=== PATIENT | female | born 1950 | race Hispanic/Latino ===

== ENCOUNTER 2017-11-24 12:40 | Observation (INO) | payer OTHER, MEDICARE ==
[~2017-11-24] VITALS: Ht 154.9 cm; Wt 72.4 kg
[~2017-11-24 12:40] MED LIST: ACET1TAB25 PO; ASPI-555 PO; ATOR20TA65 PO; EZET10TA26 PO; IBUP-2070 PO; INS7030 SQ; INSU100I21 SQ; LANS30CA55 PO; LINA290C PO; LISI40TA4 PO; LUBI24CA2 PO; METO5 PO; OMEP40CA37 PO; ONDA4TAB9 PO; SIMV40TA59 PO; SITA1TAB6 PO
[2017-11-24] MEDS ORDERED: ONDANSETRON HCL 4 MG/2 ML VIAL ONE (13:22)
[2017-11-24] MEDS ORDERED: SODIUM CHLORIDE 0.9% 1000ML 1,000 ML IV ONE (13:22)
[2017-11-24 13:25] LABS: BASOPHILS % (AUTO) 0.4 % (0.0-5.0); EOSINOPHILS % (AUTO) 0.6 % (0.0-8.0); HEMATOCRIT 41.4 % (36-48); LYMPHOCYTES % (AUTO) 7.2 % (21.0-51.0); MEAN CORPUSCULAR HEMOGLOBIN 27.5 pg (27.0-33.0); MEAN CORPUSCULAR HGB CONC 33.3 g/dL (32.0-36.0); MEAN CORPUSCULAR VOLUME 82.8 fL (79-99); MONOCYTES % (AUTO) 3.6 % (3.0-13.0); NEUTROPHILS % (AUTO) 88.2 % (40.0-77.0); PLATELET COUNT (AUTO) 184 K/uL (130-400); RED CELL DISTRIBUTION WIDTH 13.9 % (11.0-15.5); WHITE BLOOD COUNT (AUTO) 13.5 K/uL (4.8-10.8)
[2017-11-24 13:35] LABS: CREATININE 1.1 mg/dL (0.5-1.5); POTASSIUM 3.7 mmol/L (3.5-5.1)
[2017-11-24 13:39] LABS: BILIRUBIN,URINE Negative (NEGATIVE); COLOR,URINE Yellow (YELLOW); GLUCOSE, URINE (UA) 250 mg/dL (NEGATIVE); KETONES,URINE Negative (NEGATIVE); LEUKOCYTE ESTERASE ,URINE Small (NEGATIVE); NITRATE,URINE Positive (NEGATIVE); OCCULT BLOOD,URINE Small (NEGATIVE); PH,URINE 7.5 (5.0-8.0); PROTEIN,URINE >=1000 (NEGATIVE)
[2017-11-24 13:46] LABS: APPEARANCE,URINE SLIGHTLY CLOUDY (CLEAR)
[2017-11-24 13:48] LABS: ALBUMIN 3.4 g/dL (3.5-5.0); BILIRUBIN,DIRECT 0.3 mg/dL (0.0-0.3); BILIRUBIN,TOTAL 1.3 mg/dL (0.2-1.0); TOTAL PROTEIN, SERUM 7.7 g/dL (6.0-8.3)
[2017-11-24 14:20] LABS: BACTERIA,URINE Moderate /HPF (None Seen)
[2017-11-24] MEDS ORDERED: SODIUM CHLORIDE 0.9% 100 ML IV ONE (15:43)
[2017-11-24] MEDS ORDERED: CEFTRIAXONE SODIUM 2 GM VIAL ONE (15:43)
[2017-11-24] MEDS ORDERED: MAG HYDROX/AL HYDROX/SIMETH ES 30 ML SUSP UDCUP PO PRN (16:45)
[2017-11-24] MEDS ORDERED: CEFTRIAXONE 1GM/D5W 50ML 50 ML IV SCH (16:45)
[2017-11-24] MEDS ORDERED: GUAIFENESIN-DM 200/20 MG 10 ML PO PRN (16:45)
[2017-11-24] MEDS ORDERED: ACETAMINOPHEN 325 MG TAB PO PRN (16:45)
[2017-11-24] MEDS ORDERED: LACTULOSE 20 GM/30 ML UDCUP PO PRN (16:45)
[2017-11-24] MEDS ORDERED: ONDANSETRON HCL 4 MG/2 ML VIAL IV PRN (16:45)
[2017-11-24] MEDS ORDERED: MORPHINE SULFATE 2 MG/ML 1ML SYG IV PRN (16:45)
[2017-11-24 17:37] VITALS: BP 119/53
[2017-11-24 19:46] VITALS: BP 149/59
[2017-11-24] MEDS: SODIUM CHLORIDE 0.9% 1000ML 1,000 ML IV SCH (20:07)
[2017-11-24] MEDS ORDERED: POTASSIUM CHLORIDE 20 MEQ ERTAB PO PRN (22:30)
[2017-11-24] MEDS ORDERED: CEFEPIME 1GM+NS 50ML 50 ML IV SCH (22:30)
[2017-11-24] MEDS ORDERED: POTASSIUM CHLORIDE 20MEQ/100ML 100 ML IV PRN (22:30)
[2017-11-24] MEDS ORDERED: POTASSIUM CHLORIDE 10% ELIXIR 20 MEQ/15 ML UDCUP PO PRN (22:30)
[2017-11-24] MEDS ORDERED: LIDOCAINE HCL-MPF 1% 2ML VIAL IVP PRN (22:30)
[2017-11-24] MEDS ORDERED: CEFEPIME HCL 1 GM VIAL IVP SCH (23:00)
[2017-11-24] MEDS: CEFEPIME HCL 1 GM VIAL IVP SCH (23:19)
[2017-11-24 23:29] VITALS: BP 141/59
[2017-11-25 03:29] VITALS: BP 137/64
[2017-11-25 04:20] LABS: MEAN CORPUSCULAR HEMOGLOBIN 28.3 pg (27.0-33.0); MEAN CORPUSCULAR HGB CONC 33.9 g/dL (32.0-36.0); MEAN CORPUSCULAR VOLUME 83.3 fL (79-99); PLATELET COUNT (AUTO) 160 K/uL (130-400); RED BLOOD CELL COUNT(AUTO) 4.43 MIL/uL (4.00-5.50); RED CELL DISTRIBUTION WIDTH 13.9 % (11.0-15.5); WHITE BLOOD COUNT (AUTO) 9.5 K/uL (4.8-10.8)
[2017-11-25 04:42] LABS: POTASSIUM 3.6 mmol/L (3.5-5.1)
[2017-11-25] MEDS: METOCLOPRAMIDE 5 MG TABLET PO SCH ×4 (06:16→21:01)
[2017-11-25] MEDS: INSULIN HUMULIN R 100 UNIT/ML 3ML SQ SCH ×4 (06:16→20:53)
[2017-11-25 08:00] VITALS: BP 125/68
[2017-11-25] MEDS: ACETAMINOPHEN 325 MG TAB PO PRN ×2 (09:28→23:53)
[2017-11-25] MEDS: FAMOTIDINE/PF 20 MG/2 ML VIAL IV SCH (09:28)
[2017-11-25] MEDS: SODIUM CHLORIDE 0.9% 1000ML 1,000 ML IV SCH (09:33)
[2017-11-25] MEDS ORDERED: MORPHINE SULFATE 4 MG/1ML SYG IVP PRN (10:00)
[2017-11-25] MEDS ORDERED: KETOROLAC TROMETHAMINE 15MG/ML IV PRN (10:00)
[2017-11-25] MEDS ORDERED: MORPHINE SULFATE 2 MG/ML 1ML SYG IVP PRN (10:00)
[2017-11-25] MEDS ORDERED: ACETAMINOPHEN-CODEINE 300/30MG TAB PO PRN ×2 (10:00)
[2017-11-25 11:57] VITALS: BP 134/59
[2017-11-25] MEDS: CEFEPIME HCL 1 GM VIAL IVP SCH ×2 (12:50→23:52)
[2017-11-25 16:00] VITALS: BP 129/62
[2017-11-25] MEDS ORDERED: CEFTRIAXONE SODIUM 1 GM IVP SCH (16:00)
[2017-11-25] MEDS ORDERED: INSU (17:03)
[2017-11-25] MEDS ORDERED: LISI40TA4 PO (17:03)
[2017-11-25] MEDS ORDERED: LUBI24CA2 PO (17:03)
[2017-11-25] MEDS ORDERED: ATOR10 PO (17:03)
[2017-11-25] MEDS ORDERED: LUBIPROSTONE 24 MCG CAP PO PRN (17:15)
[2017-11-25 19:15] VITALS: BP 143/75
[2017-11-25] MEDS ORDERED: LISINOPRIL 40 MG TABLET PO SCH (21:00)
[2017-11-25] MEDS ORDERED: ATORVASTATIN CALCIUM 20 MG TABLET PO SCH (21:00)
[2017-11-25 23:05] VITALS: BP 116/67
[2017-11-26 03:10] VITALS: BP 134/55
[2017-11-26 05:17] LABS: CREATININE 0.8 mg/dL (0.5-1.5); POTASSIUM 3.2 mmol/L (3.5-5.1)
[2017-11-26] MEDS: INSULIN HUMULIN R 100 UNIT/ML 3ML SQ SCH ×2 (05:40→12:35)
[2017-11-26] MEDS: METOCLOPRAMIDE 5 MG TABLET PO SCH ×2 (05:41→11:31)
[2017-11-26 07:59] VITALS: BP 143/62
[2017-11-26] MEDS: FAMOTIDINE/PF 20 MG/2 ML VIAL IV SCH (10:02)
[2017-11-26] MEDS: CEFEPIME HCL 1 GM VIAL IVP SCH (11:31)
[2017-11-26 11:32] VITALS: BP 140/64
== END 2017-11-26 15:05 | disposition home or self-care (01) ==
LOC: EDH 12:40 → EDHIP 16:32 → 3DH 17:33
PROVIDERS: ADMIT Family Medicine; ATTEND Family Medicine
DX: N39.0 Urinary tract infection, site not specified (principal); E11.43 Type 2 diabetes mellitus with diabetic autonomic (poly)neuropathy; K31.84 Gastroparesis; I10 Essential (primary) hypertension; E78.5 Hyperlipidemia, unspecified; Z16.24 Resistance to multiple antibiotics; Z85.3 Personal history of malignant neoplasm of breast; Z90.10 Acquired absence of unspecified breast and nipple
CPT/HCPCS: 36415 ×3; 71045; 80048 ×3; 80076; 81001; 82948 ×8; 83605 ×2; 84484; 85025; 85027; 86677; 87040 ×2; 87088; 87186; 87804 ×2; 93005; 96361 ×2; 96372 ×2; 96374; 96375; 96376 ×2; 99285; A4218 ×4; G0378 ×47; J0692 ×5; J0696 ×2; J1815 ×4; J2405; J3490 ×2; J7030 ×2

== ENCOUNTER → 2018-03-03 | Outpatient (CLI) | payer OTHER, MEDICARE ==
[~2018-03-03] MED LIST changes: +ATOR10 PO; +INSU
== END | disposition home or self-care (01) ==
LOC: RAH 16:20
PROVIDERS: ATTEND Internal Medicine
DX: M25.531 Pain in right wrist (principal); M79.641 Pain in right hand
CPT/HCPCS: 73090; 73110

== ENCOUNTER 2018-03-05 13:44 | Emergency (ER) | payer OTHER, MEDICARE ==
[2018-03-05 14:09] LABS: BASOPHILS % (AUTO) 0.3 % (0.0-5.0); EOSINOPHILS % (AUTO) 0.6 % (0.0-8.0); HEMATOCRIT 40.4 % (36-48); MEAN CORPUSCULAR HEMOGLOBIN 28.5 pg (27.0-33.0); MEAN CORPUSCULAR HGB CONC 34.4 g/dL (32.0-36.0); MEAN CORPUSCULAR VOLUME 82.8 fL (79-99); MONOCYTES % (AUTO) 5.2 % (3.0-13.0); NEUTROPHILS % (AUTO) 67.9 % (40.0-77.0); PLATELET COUNT (AUTO) 203 K/uL (130-400); RED BLOOD CELL COUNT(AUTO) 4.88 MIL/uL (4.00-5.50); RED CELL DISTRIBUTION WIDTH 14.4 % (11.0-15.5); WHITE BLOOD COUNT (AUTO) 12.3 K/uL (4.8-10.8)
[2018-03-05] MEDS ORDERED: KETOROLAC TROMETHAMINE 30MG/ML ONE (14:09)
[2018-03-05] MEDS ORDERED: SODIUM CHLORIDE 0.9% 500ML 500 ML IV ONE (14:09)
[2018-03-05 14:21] LABS: POTASSIUM 3.2 mmol/L (3.5-5.1)
[2018-03-05 14:23] LABS: INR 0.96 (0.85-1.15); PARTIAL THROMBOPLASTIN TIME 22.9 SEC (26.3-35.5); PROTHROMBIN TIME 10.1 SEC (9.6-11.6)
[2018-03-05 14:28] LABS: ALBUMIN 3.7 g/dL (3.5-5.0); BILIRUBIN,TOTAL 0.6 mg/dL (0.2-1.0); TOTAL PROTEIN, SERUM 7.9 g/dL (6.0-8.3)
== END 2018-03-05 16:19 | disposition home or self-care (01) ==
LOC: EDH 13:44
DX: S09.8XXA Other specified injuries of head, initial encounter (principal); R55 Syncope and collapse; E11.9 Type 2 diabetes mellitus without complications; E78.00 Pure hypercholesterolemia, unspecified; I10 Essential (primary) hypertension; M81.0 Age-related osteoporosis without current pathological fracture; Z85.3 Personal history of malignant neoplasm of breast; W18.39XA Other fall on same level, initial encounter; Y93.89 Activity, other specified; Y92.89 Other specified places as the place of occurrence of the external cause; Y99.8 Other external cause status
CPT/HCPCS: 36415; 70450; 72125; 80053; 83880; 84484; 85025; 85610; 85730; 93005; 96374; 99285; J1885; J7040

== ENCOUNTER → 2018-03-25 | Outpatient (CLI) | payer OTHER, MEDICARE | END | disposition home or self-care (01) | LOC: RAH 09:16 | PROVIDERS: ATTEND Internal Medicine | DX: I07.1 Rheumatic tricuspid insufficiency (principal); R55 Syncope and collapse; Z90.12 Acquired absence of left breast and nipple | CPT/HCPCS: 93306; 93880 ==

== ENCOUNTER → 2018-06-24 | Outpatient (CLI) | payer OTHER, MEDICARE ==
[~2018-06-24] VITALS: Ht 152.4 cm; Wt 74.4 kg
[~2018-06-24] MED LIST changes: +REGADENOSON 0.4 MG/5 ML PF SYG IVP SCH
== END | disposition home or self-care (01) ==
LOC: SHCH 07:49
PROVIDERS: ATTEND Internal Medicine Cardiovascular Disease
DX: I10 Essential (primary) hypertension (principal); R06.00 Dyspnea, unspecified; R07.9 Chest pain, unspecified
CPT/HCPCS: 78452; 93017; 96374; A9500 ×2; J2785

== ENCOUNTER → 2018-11-24 | Outpatient (CLI) | payer OTHER, MEDICARE ==
[~2018-11-24] MED LIST changes: -ACET1TAB25 PO; +AMLO5TAB9 PO; -ASPI-555 PO; -ATOR10 PO; -ATOR20TA65 PO; +ATOR40TA69 PO; +CARB100C4 PO; +ESOM40CA54 PO; -EZET10TA26 PO; +HUM100IN SQ; -IBUP-2070 PO; -INS7030 SQ; -INSU; -INSU100I21 SQ; +LACT10SO9 PO; -LANS30CA55 PO; +LINA145C PO; -LINA290C PO; +LISI10TA7 PO; -LISI40TA4 PO; -LUBI24CA2 PO; -METO5 PO; -OMEP40CA37 PO; -ONDA4TAB9 PO; -REGADENOSON 0.4 MG/5 ML PF SYG IVP SCH; -SIMV40TA59 PO; -SITA1TAB6 PO; +TRAZ150T79 PO
--- NOTE | 2018-11-24 12:45 | NUR ---
MBSS COMPLETED. NO S/S OF ASPIRATION. RECOMMEND REGULAR TEXTURE, THIN LIQUIDS; PILLS WHOLE WITH LIQUIDS. PATIENT INFORMATION: Pt IS A 68 YEAR OLD FEMALE REFERRED FOR A MBSS SECONDARY TO POSSIBLE DYSPHAGIA. Pt PARTICIPATED IN AN MBSS AT THIS FACILITY ON 07/16/2018 WITH RECOMMENDATIONS FOR: MECHANICAL SOFT/CHOPPED, THIN LIQUIDS. Pt REPORTS THAT SHE FEELS PAIN AT LEVEL OF THE ESOPHAGUS WHEN SHE EATS. Pt HAS A PAST MEDICAL HISTORY SIGNIFICANT FOR CORONARY ARTERY DISEASE S/P CABG, DIABETES MELLITUS, HYPERTENSION, DYSLIPIDEMIA, OSTEOPOROSIS, MASTECTOMY IN THE 80s, BREAST CANCER, AND 4 CHOLECYSTECTOMIES. MBSS INTERPRETATION: SWALLOW FUNCTION AND EFFICIENCY WITHIN FUNCTIONAL LIMITS. ORAL MOTOR STRENGTH, COORDINATION, AND ROM WITHIN FUNCTIONAL LIMITS. LARYNGEAL ELEVATION/EXCURSION STRONG WITH TIMELY PHARYNGEAL RESPONSE. NO OVERT SIGNS OR SYMPTOMS OF ASPIRATION PRESENT DURING MBSS. A-P VIEW: BOLUS REFLUX NOTED WITHIN THE ESOPHAGUS. TOTAL BOLUS TRANSIT TIME OF 15 SECONDS WITH RESIDUE IN ESOPHAGEAL SOTO OF UPPER 1/3 OF ESOPHAGUS. RECOMMENDATION: 1. REGULAR TEXTURE, THIN LIQUIDS; PILLS WHOLE WITH LIQUIDS. 2. COMPENSATORY STRATEGIES: *SEATED AT 90 DEGREES *SMALL BITES AND SIPS *REMAIN UPRIGHT 30 MINUTES AFTER MEAL *ALTERNATE BITES AND SIPS *SLOW RATE 3. GI CONSULT FOR REFLUX OF BOLUS AND STASIS IN ESOPHAGUS RESULTS AND RECOMMENDATIONS WERE REVIEWED WITH THE Pt. SHE VERBALIZED AGREEMENT AND COMPLIANCE WITH RECOMMENDATIONS. HANDOUT PROVIDED WITH RESULTS AND RECOMMENDATIONS. G-CODES SWALLOWING: [id number] Addendum: 11/24/18 at 1254 by JOSH FREITAS Amended: Links added.
== END | disposition home or self-care (01) ==
LOC: RAH 10:00
PROVIDERS: ATTEND Internal Medicine Gastroenterology
DX: R13.12 Dysphagia, oropharyngeal phase (principal); R93.3 Abnormal findings on diagnostic imaging of other parts of digestive tract; I10 Essential (primary) hypertension; E11.9 Type 2 diabetes mellitus without complications
CPT/HCPCS: G8996; G8997; G8998; 74230; 92611

== ENCOUNTER 2019-01-16 00:51 | Emergency (ER) | payer OTHER, MEDICARE ==
[2019-01-16] MEDS ORDERED: KETOROLAC TROMETHAMINE 30MG/ML ONE (01:36)
[2019-01-16] MEDS ORDERED: DIAZEPAM 2 MG TAB ONE (01:36)
[2019-01-16] MEDS ORDERED: HYDROCODONE/ACETAMINOPHEN 5/325 MG TAB ONE (01:37)
[2019-01-16] MEDS ORDERED: LIDOCAINE 5% TOPICAL PATCH TP ONE (02:36)
== END 2019-01-16 03:26 | disposition home or self-care (01) ==
LOC: EDH 00:51
DX: M54.5 Low back pain (principal); M62.838 Other muscle spasm; K59.00 Constipation, unspecified; I25.810 Atherosclerosis of coronary artery bypass graft(s) without angina pectoris; E11.9 Type 2 diabetes mellitus without complications; E78.00 Pure hypercholesterolemia, unspecified; I10 Essential (primary) hypertension; M81.0 Age-related osteoporosis without current pathological fracture; Z85.3 Personal history of malignant neoplasm of breast
CPT/HCPCS: 72100; 96372; 99284; J1885

== ENCOUNTER → 2019-04-05 | Outpatient (CLI) | payer OTHER, MEDICARE ==
[~2019-04-05] VITALS: Ht 152.4 cm; Wt 77.1 kg
[~2019-04-05] MED LIST changes: +REGADENOSON 0.4 MG/5 ML PF SYG IVP SCH
== END | disposition home or self-care (01) ==
LOC: SHCH 08:09
PROVIDERS: ATTEND Internal Medicine Cardiovascular Disease
DX: R06.00 Dyspnea, unspecified (principal); R07.89 Other chest pain
CPT/HCPCS: 78452; 93017; 96374; A9500 ×2; J2785

== ENCOUNTER 2019-05-05 07:40 | Day surgery (SDC) | payer OTHER, MEDICARE ==
[2019-05-03 08:46] VITALS: BP 170/80
[2019-05-03 08:50] LABS: BASOPHILS % (AUTO) 0.8 % (0.0-5.0); EOSINOPHILS % (AUTO) 3.2 % (0.0-8.0); LYMPHOCYTES % (AUTO) 15.7 % (21.0-51.0); MEAN CORPUSCULAR HEMOGLOBIN 25.7 pg (27.0-33.0); MEAN CORPUSCULAR HGB CONC 32.2 g/dL (32.0-36.0); MEAN CORPUSCULAR VOLUME 79.9 fL (79-99); MONOCYTES % (AUTO) 9.2 % (3.0-13.0); NEUTROPHILS % (AUTO) 71.1 % (40.0-77.0); PLATELET COUNT (AUTO) 200 K/uL (130-400); RED BLOOD CELL COUNT(AUTO) 4.38 MIL/uL (4.00-5.50); RED CELL DISTRIBUTION WIDTH 15.8 % (11.0-15.5); WHITE BLOOD COUNT (AUTO) 7.7 K/uL (4.8-10.8)
[2019-05-03 08:59] LABS: CREATININE 0.9 mg/dL (0.5-1.5); POTASSIUM 3.9 mmol/L (3.5-5.1)
[2019-05-03 09:07] LABS: INR 0.93 (0.85-1.15); PARTIAL THROMBOPLASTIN TIME 25.5 SEC (26.3-35.5); PROTHROMBIN TIME 9.8 SEC (9.6-11.6)
[2019-05-03 09:18] LABS: APPEARANCE,URINE CLOUDY (CLEAR); BILIRUBIN,URINE NEGATIVE (NEGATIVE); COLOR,URINE YELLOW (YELLOW); GLUCOSE, URINE (UA) 250 mg/dL (NEGATIVE); KETONES,URINE NEGATIVE (NEGATIVE); LEUKOCYTE ESTERASE ,URINE TRACE (NEGATIVE); NITRATE,URINE POSITIVE (NEGATIVE); OCCULT BLOOD,URINE NEGATIVE (NEGATIVE); PROTEIN,URINE TRACE mg/dL (NEGATIVE)
[2019-05-03 09:29] LABS: BACTERIA,URINE Many /HPF (None Seen); MUCUS,URINE Rare LPF (None Seen); RBC,URINE 0-1 /HPF (0-1); SQUAMOUS EPITHELIAL CELL,UR Rare /HPF (0-2); WBC,URINE 26-50 /HPF (0-1)
[2019-05-05] VITALS (12 sets, daily range): BP systolic 136–189; BP diastolic 58–102
[~2019-05-05] VITALS: Ht 154.9 cm; Wt 77.4 kg
[~2019-05-05 07:40] MED LIST changes: -AMLO5TAB9 PO; +ASPI-555 PO; -ATOR40TA69 PO; +ATOR40TA71 PO; -CARB100C4 PO; +CARB200T5 PO; +FURO20TA4 PO; -LACT10SO9 PO; -LINA145C PO; -LISI10TA7 PO; +LUBI24CA2 PO; +NORT10CA2 PO; -REGADENOSON 0.4 MG/5 ML PF SYG IVP SCH; -TRAZ150T79 PO
[2019-05-05] MEDS ORDERED: SODIUM CHLORIDE 0.9% 1000ML 1,000 ML IV ONE (08:54)
[2019-05-05] MEDS ORDERED: NITROGLYCERIN 5 MG/ML 10 ML VIAL IV ONE (09:55)
[2019-05-05] MEDS ORDERED: HEPARIN SODIUM 1000UNIT/ML 10ML VIAL ONE (09:55)
[2019-05-05] MEDS ORDERED: LIDOCAINE HCL 1% 20 ML VIAL ONE (09:55)
[2019-05-05] MEDS ORDERED: BIVALIRUDIN 250 MG/VIAL IV ONE (09:55)
[2019-05-05] MEDS ORDERED: IOHEXOL-350 50ML VIAL IV ONE (09:56)
[2019-05-05] MEDS ORDERED: IOHEXOL 350 MG/ML 100ML INFUS..BTL IV ONE (09:56)
[2019-05-05] MEDS ORDERED: CLOPIDOGREL BISULFATE 300 MG TAB ONE ×2 (10:57→10:58)
[2019-05-05] MEDS ORDERED: ASPIRIN 325MG EC TAB 325 MG TABLET.DR PO ONE (10:58)
[2019-05-05] MEDS ORDERED: LABETALOL 20 MG/4 ML DISP.SYRIN IV ONE ×2 (11:12→11:30)
[2019-05-05] MEDS ORDERED: SODIUM CHLORIDE 0.9% 1000ML 1,000 ML IV SCH (11:33)
== END 2019-05-05 17:48 | disposition home or self-care (01) ==
LOC: DAH 07:40
PROVIDERS: ATTEND Internal Medicine Cardiovascular Disease
DX: I25.798 Atherosclerosis of other coronary artery bypass graft(s) with other forms of angina pectoris (principal); E11.9 Type 2 diabetes mellitus without complications; I10 Essential (primary) hypertension; E78.5 Hyperlipidemia, unspecified; K21.9 Gastro-esophageal reflux disease without esophagitis; Z79.899 Other long term (current) drug therapy; Z79.82 Long term (current) use of aspirin; Z79.4 Long term (current) use of insulin; Z85.3 Personal history of malignant neoplasm of breast; Z90.49 Acquired absence of other specified parts of digestive tract; Z98.890 Other specified postprocedural states; Z79.01 Long term (current) use of anticoagulants; Z82.49 Family history of ischemic heart disease and other diseases of the circulatory system; Z83.3 Family history of diabetes mellitus; Z82.5 Family history of asthma and other chronic lower respiratory diseases
CPT/HCPCS: 36415; 71045; 80048; 81001; 82948 ×2; 85025; 85610; 85730; 93005; 93459; A4606; C1725; C1760; C1769 ×3; C1874; C1887; C1894 ×2; C9600; J0583; J1644; J3490; J7030; Q9965 ×2; Q9967 ×2

== ENCOUNTER 2019-06-30 14:48 | Emergency (ER) | payer OTHER, MEDICARE ==
[2019-06-30 15:38] LABS: APPEARANCE,URINE Clear (CLEAR); BILIRUBIN,URINE Negative (NEGATIVE); COLOR,URINE Yellow (YELLOW); GLUCOSE, URINE (UA) >=1000 mg/dL (NEGATIVE); KETONES,URINE Negative (NEGATIVE); LEUKOCYTE ESTERASE ,URINE Negative (NEGATIVE); NITRATE,URINE Positive (NEGATIVE); OCCULT BLOOD,URINE Negative (NEGATIVE); PH,URINE 5.5 (5.0-8.0); PROTEIN,URINE Negative (NEGATIVE)
[2019-06-30 16:03] LABS: BACTERIA,URINE Few /HPF (None Seen); RBC,URINE 0-1 /HPF (0-1); WBC,URINE 0-1 /HPF (0-1)
[2019-06-30 16:04] LABS: SQUAMOUS EPITHELIAL CELL,UR Rare /HPF (0-2)
[2019-06-30 16:09] LABS: BASOPHILS % (AUTO) 0.5 % (0.0-5.0); EOSINOPHILS % (AUTO) 9.2 % (0.0-8.0); LYMPHOCYTES % (AUTO) 20.4 % (21.0-51.0); MEAN CORPUSCULAR HEMOGLOBIN 25.9 pg (27.0-33.0); MEAN CORPUSCULAR HGB CONC 32.8 g/dL (32.0-36.0); MONOCYTES % (AUTO) 7.8 % (3.0-13.0); NEUTROPHILS % (AUTO) 62.1 % (40.0-77.0); PLATELET COUNT (AUTO) 196 K/uL (130-400); RED CELL DISTRIBUTION WIDTH 16.3 % (11.0-15.5); WHITE BLOOD COUNT (AUTO) 6.2 K/uL (4.8-10.8)
[2019-06-30 16:17] LABS: CREATININE 1.1 mg/dL (0.5-1.5)
[2019-06-30 16:22] LABS: ALBUMIN 3.4 g/dL (3.5-5.0); BILIRUBIN,TOTAL 0.1 mg/dL (0.2-1.0); TOTAL PROTEIN, SERUM 7.1 g/dL (6.0-8.3)
== END 2019-06-30 17:59 | disposition home or self-care (01) ==
LOC: EDH 14:48
DX: N39.0 Urinary tract infection, site not specified (principal); I25.10 Atherosclerotic heart disease of native coronary artery without angina pectoris; E11.9 Type 2 diabetes mellitus without complications; E78.00 Pure hypercholesterolemia, unspecified; I10 Essential (primary) hypertension; M81.0 Age-related osteoporosis without current pathological fracture; Z85.3 Personal history of malignant neoplasm of breast
CPT/HCPCS: 36415; 74176; 80053; 81001; 85025

== ENCOUNTER 2019-09-01 20:38 | Emergency (ER) | payer OTHER, MEDICARE ==
[2019-09-01 21:00] LABS: APPEARANCE,URINE Clear (CLEAR); BILIRUBIN,URINE Negative (NEGATIVE); COLOR,URINE Yellow (YELLOW); GLUCOSE, URINE (UA) >=1000 mg/dL (NEGATIVE); KETONES,URINE Negative (NEGATIVE); LEUKOCYTE ESTERASE ,URINE Negative (NEGATIVE); NITRATE,URINE Negative (NEGATIVE); OCCULT BLOOD,URINE Negative (NEGATIVE); PROTEIN,URINE Trace mg/dL (NEGATIVE)
[2019-09-01 21:10] LABS: BACTERIA,URINE Rare /HPF (None Seen); RBC,URINE 0-1 /HPF (0-1); SQUAMOUS EPITHELIAL CELL,UR Rare /HPF (0-2); WBC,URINE 0-1 /HPF (0-1)
[2019-09-01] MEDS ORDERED: IBUPROFEN 800 MG TAB ONE (21:12)
[2019-09-01] MEDS ORDERED: HYDROCODONE/ACETAMINOPHEN 10/325 MG TAB ONE (21:12)
[2019-09-01] MEDS ORDERED: CEPHALEXIN 500 MG CAPSULE ONE (21:24)
== END 2019-09-01 22:00 | disposition home or self-care (01) ==
LOC: EDH 20:38
DX: M54.5 Low back pain (principal); R35.0 Frequency of micturition; I25.810 Atherosclerosis of coronary artery bypass graft(s) without angina pectoris; E11.9 Type 2 diabetes mellitus without complications; E78.00 Pure hypercholesterolemia, unspecified; I10 Essential (primary) hypertension; M81.0 Age-related osteoporosis without current pathological fracture; Z90.49 Acquired absence of other specified parts of digestive tract; Z85.3 Personal history of malignant neoplasm of breast
CPT/HCPCS: 81001; 87077; 87088; 87186

== ENCOUNTER 2020-01-07 23:43 | Emergency (ER) | payer MEDICARE, OTHER ==
[2020-01-08] MEDS ORDERED: MORPHINE SULFATE 2 MG/ML 1ML SYG ONE (00:11)
[2020-01-08] MEDS ORDERED: NITROGLYCERIN 1GM/1 INCH PACKET TD ONE (00:11)
[2020-01-08] MEDS ORDERED: ASPIRIN 325 MG TABLET ONE (00:11)
[2020-01-08 00:23] LABS: CREATININE 0.9 mg/dL (0.5-1.5); POTASSIUM 4.3 mmol/L (3.5-5.1)
[2020-01-08 00:24] LABS: INR 0.91 (0.85-1.15); PARTIAL THROMBOPLASTIN TIME 19.9 SEC (26.3-35.5); PROTHROMBIN TIME 9.9 SEC (9.6-11.6)
[2020-01-08 00:27] LABS: ALBUMIN 3.4 g/dL (3.5-5.0); BILIRUBIN,TOTAL 0.1 mg/dL (0.2-1.0); TOTAL PROTEIN, SERUM 7.1 g/dL (6.0-8.3)
[2020-01-08 00:29] LABS: BASOPHILS % (AUTO) 0.5 % (0.0-5.0); EOSINOPHILS % (AUTO) 3.6 % (0.0-8.0); HEMATOCRIT 37.3 % (36-48); MEAN CORPUSCULAR HEMOGLOBIN 27.5 pg (27.0-33.0); MEAN CORPUSCULAR HGB CONC 33.2 g/dL (32.0-36.0); MEAN CORPUSCULAR VOLUME 82.7 fL (79-99); MONOCYTES % (AUTO) 7.8 % (3.0-13.0); NEUTROPHILS % (AUTO) 63.8 % (40.0-77.0); PLATELET COUNT (AUTO) 180 K/uL (130-400); RED BLOOD CELL COUNT(AUTO) 4.51 MIL/uL (4.00-5.50); RED CELL DISTRIBUTION WIDTH 14.7 % (11.0-15.5); WHITE BLOOD COUNT (AUTO) 5.8 K/uL (4.8-10.8)
[2020-01-08] MEDS ORDERED: INSULIN HUMULIN R 100 UNIT/ML 3ML ONE (01:17)
[2020-01-08] MEDS ORDERED: SODIUM CHLORIDE 0.9% 500ML 500 ML IV ONE (02:02)
[2020-01-08] MEDS ORDERED: IOHEXOL-350 75 ML VIAL IV ONE (02:14)
== END 2020-01-08 03:50 | disposition home or self-care (01) ==
LOC: EDH 23:43
DX: M94.0 Chondrocostal junction syndrome [Tietze] (principal); E11.65 Type 2 diabetes mellitus with hyperglycemia; E78.00 Pure hypercholesterolemia, unspecified; I10 Essential (primary) hypertension; Z90.49 Acquired absence of other specified parts of digestive tract
CPT/HCPCS: 36415; 71045; 71275; 80053; 82550; 84484 ×2; 85025; 85378; 85610; 85730; 93005 ×2; 96374; 99285; J1815; J7040; Q9967

== ENCOUNTER 2020-04-09 05:27 | Day surgery (SDC) | payer OTHER ==
[2020-04-06 13:25] LABS: BASOPHILS % (AUTO) 0.3 % (0.0-5.0); EOSINOPHILS % (AUTO) 3.2 % (0.0-8.0); LYMPHOCYTES % (AUTO) 16.6 % (21.0-51.0); MEAN CORPUSCULAR HEMOGLOBIN 27.7 pg (27.0-33.0); MEAN CORPUSCULAR HGB CONC 31.6 g/dL (32.0-36.0); MEAN CORPUSCULAR VOLUME 87.8 fL (79-99); MONOCYTES % (AUTO) 7.3 % (3.0-13.0); NEUTROPHILS % (AUTO) 72.3 % (40.0-77.0); PLATELET COUNT (AUTO) 179 K/uL (130-400); RED BLOOD CELL COUNT(AUTO) 4.33 MIL/uL (4.00-5.50); RED CELL DISTRIBUTION WIDTH 13.6 % (11.0-15.5); WHITE BLOOD COUNT (AUTO) 5.9 K/uL (4.8-10.8)
[2020-04-06 13:26] LABS: APPEARANCE,URINE Clear (CLEAR); BILIRUBIN,URINE Negative (NEGATIVE); COLOR,URINE Yellow (YELLOW); GLUCOSE, URINE (UA) >=1000 mg/dL (NEGATIVE); KETONES,URINE Negative (NEGATIVE); LEUKOCYTE ESTERASE ,URINE Negative (NEGATIVE); NITRATE,URINE Positive (NEGATIVE); OCCULT BLOOD,URINE Negative (NEGATIVE); PROTEIN,URINE Negative (NEGATIVE); UROBILINOGEN,URINE 0.2 mg/dL (0.2-1.0)
[2020-04-06 13:32] LABS: POTASSIUM 4.9 mmol/L (3.5-5.1)
[2020-04-06 13:35] LABS: INR 0.92 (0.85-1.15); PARTIAL THROMBOPLASTIN TIME 25.5 SEC (26.3-35.5)
[2020-04-06 13:39] LABS: BACTERIA,URINE Moderate /HPF (None Seen)
[2020-04-06 13:40] LABS: RBC,URINE 0-1 /HPF (0-1)
[2020-04-06 14:32] VITALS: BP 156/68
--- NOTE | 2020-04-06 14:45 | NUR ---
REPORT CALLED DR ESPINAL AND SPOKE TO TEENA DELAROSA INFORMED HIM PT HAVING THOUGHTS OF SUICIDE. PT REPORTED SHE HAS NO PLAN HAS NEVER ATTEMPT AND WOULD NOT BE ABLE TO GO THOUGH WITH IT. RECEIVED INSTRUCTIONS TO NOTIFY DR COULTER PTS PRIMARY. WILL NOTIFY MD. DICKINSON ALSO INFORMED OF ABNORMAL LABS ON UA AND BMP. REPEAT GLUCOSE ON THURSDAY.
--- NOTE | 2020-04-06 14:50 | NUR ---
REPORT CALLED DR COULTER FROM [facility] AND SPOKE TO NURSE PINON. INFORMED PT HAVING THOUGHTS OF SUICIDE. NURSE WILL CALL PT FOR FURTHER EVAL.
[~2020-04-09] VITALS: Ht 152.4 cm; Wt 80.4 kg
[2020-04-09] VITALS (10 sets, daily range): BP systolic 146–181; BP diastolic 60–101
[~2020-04-09 05:27] MED LIST changes: -ASPI-555 PO; +ASPI-556 PO; +SODIUM CHLORIDE 0.9% 1000ML 1,000 ML IV SCH
[2020-04-09] MEDS ORDERED: MIRT15TA6 PO (06:34)
[2020-04-09] MEDS ORDERED: LISI-617 PO (06:34)
[2020-04-09] MEDS ORDERED: TIZA4CAP8 PO (06:34)
[2020-04-09] MEDS ORDERED: CLOP75TA32 PO (06:34)
[2020-04-09] MEDS ORDERED: ROSU20TA31 PO (06:35)
[2020-04-09] MEDS ORDERED: VENL-53 PO (06:35)
--- NOTE | 2020-04-09 06:39 | NUR ---
CHRISTELLE Piña NOTIFIED OF URINE CULTURE RESULTS. NO NEW ORDERS. PT HAS HAD THOUGHTS OF SUICIDE IN THE PAST -NONE TODAY. HAS NO PLAN AND IS CALM AND COOPERATIVE
[2020-04-09] MEDS ORDERED: IOHEXOL 350 MG/ML 100ML INFUS..BTL IV ONE ×3 (07:27→08:30)
[2020-04-09] MEDS ORDERED: HEPARIN SODIUM 1000UNIT/ML 10ML VIAL ONE (07:27)
[2020-04-09] MEDS ORDERED: LIDOCAINE HCL 2% 20ML ONE (07:27)
[2020-04-09] MEDS ORDERED: IOHEXOL-350 50ML VIAL IV ONE (07:27)
[2020-04-09] MEDS ORDERED: NITROGLYCERIN 2 MG/VIAL VIAL IV ONE (07:28)
[2020-04-09] MEDS ORDERED: SODIUM BICARB 50MEQ 50ML VIAL ONE (07:45)
[2020-04-09] MEDS ORDERED: BIVALIRUDIN 250 MG/VIAL IV ONE (07:48)
[2020-04-09] MEDS ORDERED: MIDAZOLAM HCL 1 MG/ML 2ML VIAL ONE (08:08)
[2020-04-09] MEDS ORDERED: FENTANYL CITRATE PF 50 MCG/1 ML 2ML VIAL ONE (08:09)
[2020-04-09] MEDS ORDERED: ENALAPRILAT DIHYDRATE 1.25 MG/ML 2ML VIAL IVP ONE (08:57)
[2020-04-09] MEDS ORDERED: LABETALOL HCL 5 MG/ML 20ML VIAL IV ONE (08:57)
--- NOTE | 2020-04-09 10:08 | NUR ---
PER PT REQUEST I CALLED HER DAUGHTER EHSAN AND GAVE HER VERBAL DISCHARGE INSTRUCTIONS OVER THE PHONE. SHE VERBALIZED UNDERSTANDING . PT WILL BE DISCHARGED AT 1230 POST IV FLUIDS AT 150ML/HR. IVF INFUSING PER MD ORDERS
--- NOTE | 2020-04-09 12:30 | NUR ---
PT DISCHARGED HOME WITH DAUGHTER EHSAN. TO CAR VIA WHEELCHAIR. I HAD PT AMBULATE IN ROOM PRIOR TO DISCHARGE- HAS NO HEMATOMA OR BLEEDING TO RT GROIN. PRINTED AND VERBAL DISCHARGE INSTRUCTION GIVEN TO PT AND I HAD ALREADY GIVEN DC INSTRUCTION TO DAUGHTER ON PHONE. BOTH VERBALIZED UNDERSTANDING OF INSTRUCTIONS. THANK YOU LLRN.
== END 2020-04-09 12:30 | disposition home or self-care (01) ==
LOC: DAH 05:27
PROVIDERS: ATTEND Internal Medicine Cardiovascular Disease
DX: I25.119 Atherosclerotic heart disease of native coronary artery with unspecified angina pectoris (principal); I25.709 Atherosclerosis of coronary artery bypass graft(s), unspecified, with unspecified angina pectoris; I34.0 Nonrheumatic mitral (valve) insufficiency; E11.9 Type 2 diabetes mellitus without complications; I10 Essential (primary) hypertension; E78.5 Hyperlipidemia, unspecified; K21.9 Gastro-esophageal reflux disease without esophagitis; Z85.3 Personal history of malignant neoplasm of breast; Z90.12 Acquired absence of left breast and nipple; Z98.890 Other specified postprocedural states; Z90.49 Acquired absence of other specified parts of digestive tract; Z79.899 Other long term (current) drug therapy; Z79.4 Long term (current) use of insulin; Z82.49 Family history of ischemic heart disease and other diseases of the circulatory system
CPT/HCPCS: 36415; 71045; 80048; 81001; 82948; 85025; 85610; 85730; 87077; 87088; 87186; 93005; 93459; A4215; A4216; A4221; A4222; A4223 ×3; A4606; A4663; C1760; C1769; C1894 ×2; J1644; J2250; J3010; J3490 ×5; J7030; Q9965 ×3; Q9967 ×3; 99156; 99157; J0583

== ENCOUNTER → 2020-12-11 | Outpatient (CLI) | payer OTHER, MEDICARE ==
[~2020-12-11] MED LIST changes: +ASPI-1026 PO; -ASPI-556 PO; -ATOR40TA71 PO; +AZIT500T4 PO; +CLOP75TA32 PO; +DEXA4 PO; -ESOM40CA54 PO; -FURO20TA4 PO; +FURO20TA6 PO; +LISI-809 PO; -LUBI24CA2 PO; +MIRT15TA6 PO; +ROSU20TA31 PO; -SODIUM CHLORIDE 0.9% 1000ML 1,000 ML IV SCH; +TIZA4CAP8 PO; +VENL-53 PO
== END | disposition home or self-care (01) ==
LOC: RAH 10:34
PROVIDERS: ATTEND Internal Medicine Gastroenterology
DX: R10.13 Epigastric pain (principal); K59.00 Constipation, unspecified
CPT/HCPCS: 78264; A9541

== ENCOUNTER 2021-03-21 14:35 | Emergency (ER) | payer OTHER, MEDICARE ==
[~2021-03-21] VITALS: Ht 152.4 cm; Wt 80.7 kg
[2021-03-21 15:24] VITALS: BP 122/71
[2021-03-21] MEDS ORDERED: SODIUM CHLORIDE 0.9% 1000ML 500 ML IV SCH (16:45)
[2021-03-21] MEDS ORDERED: SODIUM CHLORIDE 0.9% 1000ML 1,000 ML IV ONE (17:07)
[2021-03-21 17:38] VITALS: BP 113/63
[2021-03-21 17:41] LABS: BASOPHILS % (AUTO) 0.4 % (0.0-5.0); HEMATOCRIT 42.2 % (36-48); LYMPHOCYTES % (AUTO) 20.3 % (21.0-51.0); MEAN CORPUSCULAR HGB CONC 32.2 g/dL (32.0-36.0); MEAN CORPUSCULAR VOLUME 86.8 fL (79-99); MONOCYTES % (AUTO) 7.7 % (3.0-13.0); NEUTROPHILS % (AUTO) 69.2 % (40.0-77.0); PLATELET COUNT (AUTO) 202 K/uL (130-400); RED BLOOD CELL COUNT(AUTO) 4.86 MIL/uL (4.00-5.50); RED CELL DISTRIBUTION WIDTH 13.1 % (11.0-15.5); WHITE BLOOD COUNT (AUTO) 7.9 K/uL (4.8-10.8)
[2021-03-21 17:52] LABS: CREATININE 1.3 mg/dL (0.5-1.5); POTASSIUM 4.3 mmol/L (3.5-5.1)
[2021-03-21 18:02] LABS: ALBUMIN 3.8 g/dL (3.5-5.0); BILIRUBIN,TOTAL 0.3 mg/dL (0.2-1.0); TOTAL PROTEIN, SERUM 8.4 g/dL (6.0-8.3)
[2021-03-21 18:39] LABS: APPEARANCE,URINE SL CLOUDY (CLEAR); BILIRUBIN,URINE NEGATIVE (NEGATIVE); COLOR,URINE YELLOW (YELLOW); GLUCOSE, URINE (UA) >=1000 mg/dL (NEGATIVE); KETONES,URINE NEGATIVE (NEGATIVE); LEUKOCYTE ESTERASE ,URINE SMALL (NEGATIVE); NITRATE,URINE NEGATIVE (NEGATIVE); OCCULT BLOOD,URINE MODERATE (NEGATIVE); PH,URINE 6.5 (5.0-8.0); PROTEIN,URINE NEGATIVE (NEGATIVE); UROBILINOGEN,URINE 0.2 mg/dL (0.2-1.0)
[2021-03-21 18:50] VITALS: BP 133/81
[2021-03-21 18:52] LABS: BACTERIA,URINE Moderate /HPF (None Seen); MUCUS,URINE Few LPF (None Seen); RBC,URINE 0-1 /HPF (0-1); SQUAMOUS EPITHELIAL CELL,UR 0-2 /HPF (0-2); YEAST,URINE BUDDING Few /HPF (None Seen)
[2021-03-21] MEDS ORDERED: CEFTRIAXONE SODIUM 1 GM IVP SCH (19:30)
[2021-03-21] MEDS ORDERED: NITR100C4 PO (20:32)
[2021-03-21] MEDS ORDERED: ONDA4TAB4 PO (20:35)
[2021-03-21 21:05] VITALS: BP 161/72
== END 2021-03-21 21:06 | disposition home or self-care (01) ==
LOC: EDH 14:35
DX: N39.0 Urinary tract infection, site not specified (principal); E11.65 Type 2 diabetes mellitus with hyperglycemia; E86.0 Dehydration; R53.1 Weakness; I10 Essential (primary) hypertension; Z79.82 Long term (current) use of aspirin; Z79.899 Other long term (current) drug therapy
CPT/HCPCS: 36415; 80053; 81001; 83690; 84484; 85025; 87077; 87088; 87186; 93005; 96374; 99285; J0696; J7030

== ENCOUNTER 2021-05-25 09:58 | Emergency (ER) | payer OTHER, MEDICARE ==
[~2021-05-25] VITALS: Ht 152.4 cm; Wt 75.7 kg
[~2021-05-25 09:58] MED LIST changes: +MIRT-22 PO; -MIRT15TA6 PO; +NITR100C4 PO; +ONDA4TAB4 PO
[2021-05-25 09:59] VITALS: BP 131/69
[2021-05-25 10:37] LABS: BILIRUBIN,URINE Negative (NEGATIVE); COLOR,URINE Yellow (YELLOW); GLUCOSE, URINE (UA) 500 mg/dL (NEGATIVE); KETONES,URINE Trace mg/dL (NEGATIVE); LEUKOCYTE ESTERASE ,URINE Small (NEGATIVE); NITRATE,URINE Negative (NEGATIVE); OCCULT BLOOD,URINE Negative (NEGATIVE); PH,URINE 6.5 (5.0-8.0); PROTEIN,URINE POS 1+ mg/dL (NEGATIVE)
[2021-05-25 10:38] LABS: APPEARANCE,URINE HAZY (CLEAR)
[2021-05-25 10:39] LABS: BASOPHILS % (AUTO) 0.2 % (0.0-5.0); EOSINOPHILS % (AUTO) 2.6 % (0.0-8.0); HEMATOCRIT 41.2 % (36-48); LYMPHOCYTES % (AUTO) 8.7 % (21.0-51.0); MEAN CORPUSCULAR HEMOGLOBIN 27.8 pg (27.0-33.0); MEAN CORPUSCULAR VOLUME 84.1 fL (79-99); MONOCYTES % (AUTO) 7.5 % (3.0-13.0); NEUTROPHILS % (AUTO) 80.8 % (40.0-77.0); PLATELET COUNT (AUTO) 175 K/uL (130-400); RED CELL DISTRIBUTION WIDTH 14.9 % (11.0-15.5); WHITE BLOOD COUNT (AUTO) 8.4 K/uL (4.8-10.8)
[2021-05-25 10:47] LABS: CREATININE 1.1 mg/dL (0.5-1.5); POTASSIUM 4.2 mmol/L (3.5-5.1)
[2021-05-25 10:49] LABS: BACTERIA,URINE None Seen /HPF (None Seen); MUCUS,URINE Few LPF (None Seen); RBC,URINE None Seen /HPF (0-1); WBC,URINE 0-1 /HPF (0-1)
[2021-05-25 10:51] LABS: ALBUMIN 3.3 g/dL (3.5-5.0); BILIRUBIN,TOTAL 0.5 mg/dL (0.2-1.0); TOTAL PROTEIN, SERUM 7.2 g/dL (6.0-8.3)
[2021-05-25] MEDS ORDERED: MORPHINE 4 MG SYG IV PRN (12:00)
[2021-05-25] MEDS ORDERED: 0.9%NACL 1000ML 1,000 ML IV SCH (12:00)
[2021-05-25] MEDS ORDERED: METOCLOPRAMIDE 10 MG/2 ML VIAL IVP ONE (12:00)
[2021-05-25] MEDS ORDERED: ACETAMINOPHEN 325 MG TAB PO ONE (13:30)
[2021-05-25] MEDS ORDERED: ACETAMINOPHEN 325 MG TAB ONE (13:30)
[2021-05-25] MEDS ORDERED: METO5 PO (13:31)
[2021-05-25 13:55] VITALS: BP 68/44
[2021-05-25 14:54] VITALS: BP 120/65
== END 2021-05-25 14:56 | disposition home or self-care (01) ==
LOC: EDH 09:58
DX: K52.9 Noninfective gastroenteritis and colitis, unspecified (principal); Z20.822 Contact with and (suspected) exposure to COVID-19; E11.9 Type 2 diabetes mellitus without complications; E78.5 Hyperlipidemia, unspecified; I10 Essential (primary) hypertension; Z79.4 Long term (current) use of insulin; Z79.52 Long term (current) use of systemic steroids; Z79.82 Long term (current) use of aspirin; Z79.899 Other long term (current) drug therapy; Z87.440 Personal history of urinary (tract) infections; Z95.1 Presence of aortocoronary bypass graft; Z95.5 Presence of coronary angioplasty implant and graft
CPT/HCPCS: 36415; 80053; 81001; 82150; 82948; 83690; 85025; 87635; 96374; 96375; 99284; C9803; J2270; J2765; J7030

== ENCOUNTER → 2021-09-03 | Outpatient (CLI) | payer OTHER, MEDICARE ==
[~2021-09-03] VITALS: Ht 152.4 cm; Wt 80.3 kg
[~2021-09-03] MED LIST changes: +AMOX-426 PO; +CEPH250C2 PO; -LISI-809 PO; +LISI5TAB21 PO; +METO5 PO; +ONDA4TAB10 PO; +PANT20TA PO; +REGADENOSON 0.4 MG/5 ML PF SYG IVP SCH
== END | disposition home or self-care (01) ==
LOC: SHCH 09:13
PROVIDERS: ATTEND Internal Medicine Cardiovascular Disease
DX: R94.31 Abnormal electrocardiogram [ECG] [EKG] (principal)
CPT/HCPCS: 78452; 93017; 96374; A9500 ×2; J2785

== ENCOUNTER 2021-09-18 22:15 | Emergency (ER) | payer OTHER, MEDICARE ==
[~2021-09-18] VITALS: Ht 152.4 cm; Wt 76.2 kg
[~2021-09-18 22:15] MED LIST changes: -AMOX-426 PO; -CEPH250C2 PO; -ONDA4TAB10 PO; -PANT20TA PO; -REGADENOSON 0.4 MG/5 ML PF SYG IVP SCH
[2021-09-18 22:57] VITALS: BP 145/79
[2021-09-18] MEDS ORDERED: LIDOCAINE HCL 1% 20 ML VIAL INJ ONE (23:00)
[2021-09-18] MEDS ORDERED: TETANUS/DIPHTHERIA TOXOID [ADULT] 0.5 ML VIAL IM ONE (23:00)
[2021-09-18] MEDS ORDERED: L.E.T. GEL 3ML SYG TP ONE ×2 (23:00→23:02)
[2021-09-18] MEDS ORDERED: LIDOCAINE HCL-MPF 1% 2ML VIAL ONE (23:02)
[2021-09-18] MEDS ORDERED: AMOX/CLAV 500/125MG TAB PO ONE (23:30)
[2021-09-19] MEDS ORDERED: AMOX-426 PO
[2021-09-19] MEDS ORDERED: ACETAMINOPHEN 325 MG TAB PO ONE
[2021-09-19] MEDS ORDERED: ACETAMINOPHEN 325 MG TAB ONE (00:04)
[2021-09-19] MEDS ORDERED: ONDA4TAB10 PO (18:49)
[2021-09-19] MEDS ORDERED: PANT20TA PO (18:49)
[2021-09-19] MEDS ORDERED: CEPH250C2 PO (18:49)
== END 2021-09-19 00:34 | disposition home or self-care (01) ==
LOC: EDH 22:15
DX: S81.811A Laceration without foreign body, right lower leg, initial encounter (principal); S80.811A Abrasion, right lower leg, initial encounter; E11.9 Type 2 diabetes mellitus without complications; E78.00 Pure hypercholesterolemia, unspecified; I10 Essential (primary) hypertension; Z79.4 Long term (current) use of insulin; Z79.52 Long term (current) use of systemic steroids; Z79.82 Long term (current) use of aspirin; Z79.899 Other long term (current) drug therapy; Z95.1 Presence of aortocoronary bypass graft; W54.0XXA Bitten by dog, initial encounter; Y93.89 Activity, other specified; Y92.89 Other specified places as the place of occurrence of the external cause; Y99.8 Other external cause status
CPT/HCPCS: 12001; 73590; 90714; 90471; 99283; J3490

== ENCOUNTER 2021-09-19 13:50 | Emergency (ER) | payer OTHER, MEDICARE ==
[~2021-09-19] VITALS: Ht 152.4 cm; Wt 76.2 kg
[~2021-09-19 13:50] MED LIST changes: +AMOX-426 PO
[2021-09-19 14:21] LABS: BASOPHILS % (AUTO) 0.3 % (0.0-5.0); EOSINOPHILS % (AUTO) 0.8 % (0.0-8.0); HEMATOCRIT 41.2 % (36-48); LYMPHOCYTES % (AUTO) 8.5 % (21.0-51.0); MEAN CORPUSCULAR HEMOGLOBIN 29.2 pg (27.0-33.0); MEAN CORPUSCULAR VOLUME 88.4 fL (79-99); MONOCYTES % (AUTO) 7.6 % (3.0-13.0); NEUTROPHILS % (AUTO) 82.4 % (40.0-77.0); PLATELET COUNT (AUTO) 213 K/uL (130-400); RED BLOOD CELL COUNT(AUTO) 4.66 MIL/uL (4.00-5.50); RED CELL DISTRIBUTION WIDTH 13.2 % (11.0-15.5); WHITE BLOOD COUNT (AUTO) 10.1 K/uL (4.8-10.8)
[2021-09-19 14:24] LABS: APPEARANCE,URINE Cloudy (CLEAR); BILIRUBIN,URINE Negative (NEGATIVE); COLOR,URINE Yellow (YELLOW); GLUCOSE, URINE (UA) >=1000 mg/dL (NEGATIVE); KETONES,URINE Negative (NEGATIVE); LEUKOCYTE ESTERASE ,URINE Negative (NEGATIVE); NITRATE,URINE Negative (NEGATIVE); OCCULT BLOOD,URINE Negative (NEGATIVE); PH,URINE 5.5 (5.0-8.0); PROTEIN,URINE Negative (NEGATIVE)
[2021-09-19 14:38] LABS: BACTERIA,URINE None Seen /HPF (None Seen); MUCUS,URINE Few LPF (None Seen); RBC,URINE 0-1 /HPF (0-1); SQUAMOUS EPITHELIAL CELL,UR 0-2 /HPF (0-2); YEAST,URINE BUDDING Few /HPF (None Seen)
[2021-09-19 14:39] LABS: ALBUMIN 3.8 g/dL (3.5-5.0); BILIRUBIN,TOTAL 0.5 mg/dL (0.2-1.0); CREATININE 1.3 mg/dL (0.5-1.5); POTASSIUM 4.6 mmol/L (3.5-5.1); TOTAL PROTEIN, SERUM 8.2 g/dL (6.0-8.3)
[2021-09-19] MEDS ORDERED: 0.9%NACL 1000ML 1,000 ML IV SCH (15:00)
[2021-09-19] MEDS ORDERED: ONDANSETRON 4MG INJ IVP SCH (15:00)
[2021-09-19] MEDS ORDERED: INSULIN HUMULIN R 100 UNIT/ML 3ML IV ONE (15:30)
[2021-09-19] MEDS ORDERED: SUCRALFATE 1 GM TABLET PO SCH (18:45)
[2021-09-19] MEDS ORDERED: PANTOPRAZOLE 40 MG/VIAL IVP SCH (18:45)
[2021-09-19] MEDS ORDERED: CEPH250C2 PO (18:49)
[2021-09-19] MEDS ORDERED: ONDA4TAB10 PO (18:49)
[2021-09-19] MEDS ORDERED: PANT20TA PO (18:49)
[2021-09-19 18:58] VITALS: BP 124/78
== END 2021-09-19 19:01 | disposition home or self-care (01) ==
LOC: EDH 13:50
DX: K21.9 Gastro-esophageal reflux disease without esophagitis (principal); R11.2 Nausea with vomiting, unspecified; T36.0X5A Adverse effect of penicillins, initial encounter; E11.65 Type 2 diabetes mellitus with hyperglycemia; I10 Essential (primary) hypertension; E78.00 Pure hypercholesterolemia, unspecified; Z79.52 Long term (current) use of systemic steroids; Z79.4 Long term (current) use of insulin; Z79.82 Long term (current) use of aspirin; Z79.899 Other long term (current) drug therapy; Z85.3 Personal history of malignant neoplasm of breast; Z95.1 Presence of aortocoronary bypass graft
CPT/HCPCS: 36415; 80053; 81001; 82150; 83690; 84484; 85025; 93005; 96361; 96374; 96375; 99284; C9113; J1815; J2405; J7030

== ENCOUNTER 2022-04-23 12:07 | Emergency (ER) | payer OTHER, MEDICARE ==
[~2022-04-23] VITALS: Ht 157.5 cm; Wt 74.8 kg
[~2022-04-23 12:07] MED LIST changes: +CEPH250C2 PO; +ONDA4TAB10 PO; +PANT20TA PO
[2022-04-23 13:13] LABS: BASOPHILS % (AUTO) 0.4 % (0.0-5.0); HEMATOCRIT 36.9 % (36-48); LYMPHOCYTES % (AUTO) 18.2 % (21.0-51.0); MEAN CORPUSCULAR HEMOGLOBIN 27.6 pg (27.0-33.0); MEAN CORPUSCULAR HGB CONC 33.1 g/dL (32.0-36.0); MEAN CORPUSCULAR VOLUME 83.5 fL (79-99); MONOCYTES % (AUTO) 10.6 % (3.0-13.0); NEUTROPHILS % (AUTO) 69.1 % (40.0-77.0); PLATELET COUNT (AUTO) 169 K/uL (130-400); RED BLOOD CELL COUNT(AUTO) 4.42 MIL/uL (4.00-5.50); RED CELL DISTRIBUTION WIDTH 13.4 % (11.0-15.5)
[2022-04-23 13:41] LABS: ALANINE AMINOTRANSFERASE 29 U/L (12-78); ALBUMIN 2.8 g/dL (3.5-5.0); ASPARTATE AMINOTRANSFERASE 40 U/L (10-37); BILIRUBIN,TOTAL 0.2 mg/dL (0.2-1.0); CARBON DIOXIDE 27 mmol/L (21-32); CHLORIDE 100 mmol/L (101-111); CREATININE 1.2 mg/dL (0.5-1.5); GLOMERULAR FILTR. RATE CALC 47 mL/min (>60); GLUCOSE,RANDOM 115 mg/dL (70-105); SODIUM SERUM 139 mmol/L (136-145); TOTAL PROTEIN, SERUM 7.2 g/dL (6.0-8.3); UREA NITROGEN, BLOOD 17 mg/dL (7-18)
[2022-04-23 13:43] LABS: ALCOHOL, BLOOD < 3 mg/dL (0-10)
[2022-04-23 13:44] LABS: POTASSIUM 2.9 mmol/L (3.5-5.1)
[2022-04-23 13:54] LABS: CARBAMAZEPINE (TEGRETOL) 5.1 mcg/mL (4.0-12.0)
[2022-04-23] MEDS ORDERED: POTASSIUM CHLORIDE 10MEQ/100ML 100 ML IV SCH (14:00)
[2022-04-23] MEDS ORDERED: POTASSIUM CHLORIDE 10% ELIXIR 20 MEQ/15 ML UDCUP PO ONE (14:00)
[2022-04-23] MEDS ORDERED: POTASSIUM CHLORIDE 20MEQ/10ML 10 MEQ in 0.9%NACL 50ML 50 ML IV SCH (14:00)
[2022-04-23] MEDS ORDERED: MORPHINE 2 MG SYG ONE (14:16)
[2022-04-23] MEDS ORDERED: MORPHINE 2 MG SYG IVP ONE (14:30)
[2022-04-23] MEDS ORDERED: LIDOP TD (15:04)
[2022-04-23 15:07] VITALS: BP 156/60
== END 2022-04-23 16:30 | disposition home or self-care (01) ==
LOC: EDH 12:07
DX: S09.90XA Unspecified injury of head, initial encounter (principal); E87.6 Hypokalemia; M54.50 Low back pain, unspecified; F32.A Depression, unspecified; E11.9 Type 2 diabetes mellitus without complications; E78.00 Pure hypercholesterolemia, unspecified; I10 Essential (primary) hypertension; Z79.899 Other long term (current) drug therapy; Z79.82 Long term (current) use of aspirin; Z79.4 Long term (current) use of insulin; Z98.890 Other specified postprocedural states; W18.39XA Other fall on same level, initial encounter; Y93.89 Activity, other specified; Y92.89 Other specified places as the place of occurrence of the external cause; Y99.8 Other external cause status
CPT/HCPCS: 36415; 70450; 72125; 72131; 80053; 80156; 83605; 84484; 85025; 93005

== ENCOUNTER → 2022-07-03 | Outpatient (CLI) | payer OTHER, MEDICARE ==
[~2022-07-03] MED LIST changes: +LIDOP TD
== END | disposition home or self-care (01) ==
LOC: RAH 15:19
PROVIDERS: ATTEND Internal Medicine
DX: M47.816 Spondylosis without myelopathy or radiculopathy, lumbar region (principal); M54.50 Low back pain, unspecified
CPT/HCPCS: 72100

== ENCOUNTER 2022-08-11 20:16 | Emergency (ER) | payer OTHER, MEDICARE ==
[~2022-08-11] VITALS: Ht 152.4 cm; Wt 74.8 kg
[2022-08-11 20:47] VITALS: BP 110/65
[2022-08-11 20:52] LABS: BASOPHILS % (AUTO) 0.4 % (0.0-5.0); EOSINOPHILS % (AUTO) 1.5 % (0.0-8.0); HEMATOCRIT 38.3 % (36-48); LYMPHOCYTES % (AUTO) 23.1 % (21.0-51.0); MEAN CORPUSCULAR HEMOGLOBIN 29.1 pg (27.0-33.0); MEAN CORPUSCULAR HGB CONC 33.2 g/dL (32.0-36.0); MEAN CORPUSCULAR VOLUME 87.6 fL (79-99); MONOCYTES % (AUTO) 7.1 % (3.0-13.0); NEUTROPHILS % (AUTO) 67.4 % (40.0-77.0); PLATELET COUNT (AUTO) 208 K/uL (130-400); RED BLOOD CELL COUNT(AUTO) 4.37 MIL/uL (4.00-5.50); RED CELL DISTRIBUTION WIDTH 13.7 % (11.0-15.5); WHITE BLOOD COUNT (AUTO) 9.4 K/uL (4.8-10.8)
[2022-08-11 21:07] LABS: ALBUMIN 3.4 g/dL (3.5-5.0); CREATININE 1.3 mg/dL (0.5-1.5); POTASSIUM 4.2 mmol/L (3.5-5.1); TOTAL PROTEIN, SERUM 7.5 g/dL (6.0-8.3)
[2022-08-11] MEDS ORDERED: INSULIN HUMULIN R 100 UNIT/ML 3ML IV ONE (21:30)
[2022-08-11] MEDS ORDERED: DEXTROSE 50%-WATER 50 ML DISP.SYRIN IV ONE (21:30)
[2022-08-11] MEDS ORDERED: 0.9%NACL 1000ML 1,000 ML IV SCH (21:30)
[2022-08-11 22:02] LABS: APPEARANCE,URINE CLEAR (CLEAR); BILIRUBIN,URINE NEGATIVE (NEGATIVE); COLOR,URINE COLORLESS (YELLOW); GLUCOSE, URINE (UA) >=1000 mg/dL (NEGATIVE); KETONES,URINE NEGATIVE (NEGATIVE); LEUKOCYTE ESTERASE ,URINE 250 Leu/uL (NEGATIVE); NITRATE,URINE 2+ (NEGATIVE); OCCULT BLOOD,URINE NEGATIVE (NEGATIVE); PH,URINE 5.5 (5.0-8.0); PROTEIN,URINE NEGATIVE (NEGATIVE); UROBILINOGEN,URINE 0.2 mg/dL (0.2-1.0)
[2022-08-11 22:04] LABS: BACTERIA,URINE FEW /HPF (None Seen); MUCUS,URINE RARE LPF (None Seen); RBC,URINE 26-50 /HPF (0-1); SQUAMOUS EPITHELIAL CELL,UR RARE /HPF (0-2); YEAST,URINE BUDDING RARE /HPF (None Seen)
[2022-08-11] MEDS ORDERED: CEFTRIAXONE 1G VIAL IVP ONE (22:30)
[2022-08-11] MEDS ORDERED: CEPH500B PO (22:39)
== END 2022-08-11 23:22 | disposition home or self-care (01) ==
LOC: EDH 20:16
DX: N39.0 Urinary tract infection, site not specified (principal); E11.65 Type 2 diabetes mellitus with hyperglycemia; R53.1 Weakness; Z20.822 Contact with and (suspected) exposure to COVID-19; E78.00 Pure hypercholesterolemia, unspecified; I10 Essential (primary) hypertension; F31.9 Bipolar disorder, unspecified; Z79.4 Long term (current) use of insulin; Z79.52 Long term (current) use of systemic steroids; Z79.82 Long term (current) use of aspirin; Z85.3 Personal history of malignant neoplasm of breast
CPT/HCPCS: 99284; 96374; 71045; 87635; 96361; 96375; 84484; 80053; 83880; 85025; 87077; 87088; 87186; 87804 ×2; 82948; 81001; 36415; J1815; C9803; J7030; J0696

== ENCOUNTER 2023-04-23 13:40 | Emergency (ER) | payer OTHER, MEDICARE ==
[~2023-04-23] VITALS: Ht 152.4 cm; Wt 78.0 kg
[~2023-04-23 13:40] MED LIST changes: +CEPH500B PO; -ROSU20TA31 PO; +ROSU20TA73 PO
[2023-04-23] MEDS ORDERED: LACTATED RINGERS 1000ML 1,000 ML IV ONE (14:30)
[2023-04-23] MEDS ORDERED: ONDANSETRON 4MG INJ ONE (14:45)
[2023-04-23 15:16] LABS: APPEARANCE,URINE CLOUDY (CLEAR); BACTERIA,URINE FEW /HPF (None Seen); BILIRUBIN,URINE NEGATIVE (NEGATIVE); COLOR,URINE YELLOW (YELLOW); GLUCOSE, URINE (UA) >=1000 mg/dL (NEGATIVE); KETONES,URINE NEGATIVE (NEGATIVE); LEUKOCYTE ESTERASE ,URINE NEGATIVE Leu/uL (NEGATIVE); MUCUS,URINE RARE LPF (None Seen); NITRATE,URINE NEGATIVE (NEGATIVE); OTHER CASTS, URINE 1 /LPF (None Seen); PH,URINE 5.5 (5.0-8.0); PROTEIN,URINE NEGATIVE (NEGATIVE); SQUAMOUS EPITHELIAL CELL,UR MOD /HPF (0-2); UROBILINOGEN,URINE 0.2 mg/dL (0.2-1.0); YEAST,URINE BUDDING FEW /HPF (None Seen)
[2023-04-23 15:22] LABS: BASOPHILS % (AUTO) 0.3 % (0.0-5.0); EOSINOPHILS % (AUTO) 0.8 % (0.0-8.0); HEMATOCRIT 44.3 % (36-48); LYMPHOCYTES % (AUTO) 20.3 % (21.0-51.0); MEAN CORPUSCULAR HEMOGLOBIN 28.8 pg (27.0-33.0); MEAN CORPUSCULAR VOLUME 87.4 fL (79-99); MONOCYTES % (AUTO) 7.5 % (3.0-13.0); NEUTROPHILS % (AUTO) 70.2 % (40.0-77.0); PLATELET COUNT (AUTO) 151 K/uL (130-400); RED BLOOD CELL COUNT(AUTO) 5.07 MIL/uL (4.00-5.50); RED CELL DISTRIBUTION WIDTH 15.8 % (11.0-15.5)
[2023-04-23 15:31] LABS: CREATININE 1.3 mg/dL (0.5-1.5); POTASSIUM 3.7 mmol/L (3.5-5.1)
[2023-04-23 15:40] LABS: ALBUMIN 3.1 g/dL (3.5-5.0); TOTAL PROTEIN, SERUM 7.2 g/dL (6.0-8.3)
[2023-04-23] MEDS ORDERED: LIDOCAINE HCL 2% VISCOUS 15 ML UDCUP PO ONE (16:00)
[2023-04-23] MEDS ORDERED: MAG/ALUM/SIMETH 30 ML UDCUP PO ONE (16:00)
[2023-04-23] MEDS ORDERED: PANTOPRAZOLE 40 MG/VIAL IVP ONE (16:00)
[2023-04-23] MEDS ORDERED: POLY8.5P PO (16:59)
[2023-04-23 17:13] VITALS: BP 120/64; PULSE 80; RESP 18
== END 2023-04-23 17:35 | disposition home or self-care (01) ==
LOC: EDH 13:40
DX: K59.00 Constipation, unspecified (principal); E11.9 Type 2 diabetes mellitus without complications; E78.00 Pure hypercholesterolemia, unspecified; Z79.02 Long term (current) use of antithrombotics/antiplatelets; Z79.4 Long term (current) use of insulin; Z79.52 Long term (current) use of systemic steroids; Z79.82 Long term (current) use of aspirin; Z79.899 Other long term (current) drug therapy; Z85.3 Personal history of malignant neoplasm of breast; Z88.0 Allergy status to penicillin; Z90.49 Acquired absence of other specified parts of digestive tract; Z95.1 Presence of aortocoronary bypass graft
CPT/HCPCS: 99285; 74176; 96374; 71045; 96375; 84484; 80053; 83690; 85025; 87077; 87088; 87186; 81001; 36415; 93005; J2405; C9113

== ENCOUNTER 2023-09-16 09:05 | Day surgery (SDC) | payer OTHER, MEDICARE ==
[~2023-09-16] VITALS: Ht 152.4 cm; Wt 77.1 kg
[2023-09-16] VITALS (12 sets, daily range): BP systolic 143–163; BP diastolic 41–73; PULSE 65–73; RESP 12–20
[~2023-09-16 09:05] MED LIST changes: +0.9%NACL 1000ML 1,000 ML IV ONE; -AMOX-426 PO; -ASPI-1026 PO; +ASPI-1197 PO; -AZIT500T4 PO; -CEPH250C2 PO; -CEPH500B PO; -CLOP75TA32 PO; -DEXA4 PO; -FURO20TA6 PO; -HUM100IN SQ; +INSU100V37 SQ; -LIDOP TD; +LINA5TAB PO; -LISI5TAB21 PO; +LOSA1TAB37 PO; -METO5 PO; -MIRT-22 PO; -NITR100C4 PO; +OMEP40CA21 PO; -ONDA4TAB10 PO; -ONDA4TAB4 PO; -PANT20TA PO; +SUCR1TAB2 PO; -TIZA4CAP8 PO; -VENL-53 PO
[2023-09-16] MEDS ORDERED: PROPOFOL 10 MG/ML 20ML VIAL IV ONE (10:20)
== END 2023-09-16 11:50 | disposition home or self-care (01) ==
LOC: DAH 09:05 → ENDO 09:05
PROVIDERS: ATTEND Internal Medicine Gastroenterology
DX: R13.10 Dysphagia, unspecified (principal); K29.50 Unspecified chronic gastritis without bleeding; K22.2 Esophageal obstruction; E78.5 Hyperlipidemia, unspecified; E11.9 Type 2 diabetes mellitus without complications; K59.04 Chronic idiopathic constipation; F41.9 Anxiety disorder, unspecified; F32.A Depression, unspecified; K21.9 Gastro-esophageal reflux disease without esophagitis; K44.9 Diaphragmatic hernia without obstruction or gangrene; M81.0 Age-related osteoporosis without current pathological fracture; Z80.52 Family history of malignant neoplasm of bladder; Z82.49 Family history of ischemic heart disease and other diseases of the circulatory system; Z83.3 Family history of diabetes mellitus; Z82.5 Family history of asthma and other chronic lower respiratory diseases; Z79.82 Long term (current) use of aspirin; Z79.4 Long term (current) use of insulin; Z79.899 Other long term (current) drug therapy; Z90.49 Acquired absence of other specified parts of digestive tract; Z98.890 Other specified postprocedural states
CPT/HCPCS: 43249; 82948 ×2; 43239; J7030 ×2; J2704; A4620; A4215 ×2; A4223; A7002; A4222; A4221; A4663; A4606; J3490

== ENCOUNTER 2023-12-16 05:52 | Day surgery (SDC) | payer OTHER, MEDICARE ==
[2023-12-14 11:10] LABS: APPEARANCE,URINE CLOUDY (CLEAR); BILIRUBIN,URINE NEGATIVE (NEGATIVE); COLOR,URINE YELLOW (YELLOW); GLUCOSE, URINE (UA) 300 mg/dL (NEGATIVE); KETONES,URINE NEGATIVE (NEGATIVE); LEUKOCYTE ESTERASE ,URINE NEGATIVE Leu/uL (NEGATIVE); NITRATE,URINE 2+ (NEGATIVE); OCCULT BLOOD,URINE NEGATIVE (NEGATIVE); PH,URINE 5.5 (5.0-8.0); PROTEIN,URINE 10 mg/dL (NEGATIVE); UROBILINOGEN,URINE 0.2 mg/dL (0.2-1.0)
[2023-12-14 11:11] LABS: ADD UA MICROSCOPIC YES
[2023-12-14 11:16] LABS: BACTERIA,URINE MOD /HPF (None Seen); MUCUS,URINE RARE LPF (None Seen); SQUAMOUS EPITHELIAL CELL,UR MOD /HPF (0-2)
[2023-12-14 11:18] LABS: BASOPHILS # (AUTO) 0.04 K/uL (0.00-0.20); BASOPHILS % (AUTO) 0.6 % (0.0-5.0); EOSINOPHILS # (AUTO) 0.36 K/uL (0.00-0.70); EOSINOPHILS % (AUTO) 5.1 % (0.0-8.0); HEMATOCRIT 37.5 % (36-48); IMMATURE GRANULOCYTE ABSOLUTE 0.04 K/uL (0-1); LYMPHOCYTES # (AUTO) 2.1 K/uL (1.0-4.8); LYMPHOCYTES % (AUTO) 30.2 % (21.0-51.0); MEAN CORPUSCULAR HEMOGLOBIN 27.9 pg (27.0-33.0); MEAN CORPUSCULAR HGB CONC 33.1 g/dL (32.0-36.0); MEAN CORPUSCULAR VOLUME 84.5 fL (79-99); MONOCYTES # (AUTO) 0.5 K/uL (0.1-1.0); MONOCYTES % (AUTO) 7.4 % (3.0-13.0); NEUTROPHILS % (AUTO) 56.1 % (40.0-77.0); PLATELET COUNT (AUTO) 233 K/uL (130-400); RED BLOOD CELL COUNT(AUTO) 4.44 MIL/uL (4.00-5.50); RED CELL DISTRIBUTION WIDTH 13.4 % (11.0-15.5)
[2023-12-14 11:32] LABS: CREATININE 1.1 mg/dL (0.5-1.5); POTASSIUM 3.8 mmol/L (3.5-5.1)
[2023-12-14 11:33] VITALS: BP 180/63; PULSE 93; RESP 18
[2023-12-14 12:06] LABS: B-TYPE NATRIURETIC PEPTIDE 54 pg/mL (0-100)
[2023-12-14 13:03] LABS: INR <= 0.93 (0.85-1.15); PROTHROMBIN TIME 10.3 SEC (9.6-11.6)
[2023-12-14 13:04] LABS: PARTIAL THROMBOPLASTIN TIME 27.3 SEC (26.3-35.5)
[2023-12-16] VITALS (9 sets, daily range): BP systolic 130–170; BP diastolic 52–74; PULSE 71–80; RESP 16–17
[~2023-12-16] VITALS: Ht 152.4 cm; Wt 76.7 kg
[~2023-12-16 05:52] MED LIST changes: -0.9%NACL 1000ML 1,000 ML IV ONE; +ARIP5TAB56 PO; +CHLO10TA19 PO; +LINA145C PO; +MIRT-73 PO; +SEMA1PEN3 SQ
[2023-12-16] MEDS ORDERED: LIDOCAINE HCL 400MG/20ML VIAL ONE (08:13)
[2023-12-16] MEDS ORDERED: FENTANYL CITRATE PF 50 MCG/1 ML 2ML VIAL ONE (08:13)
[2023-12-16] MEDS ORDERED: BIVALIRUDIN 250 MG/VIAL IV ONE (08:14)
[2023-12-16] MEDS ORDERED: HEPARIN 10,000 UNIT/10ML (1,000 UNIT/ML) VIAL ONE (08:14)
[2023-12-16] MEDS ORDERED: MIDAZOLAM HCL 1 MG/ML 2ML VIAL ONE (08:14)
[2023-12-16] MEDS ORDERED: IOHEXOL-350 75 ML VIAL IV ONE (08:14)
[2023-12-16] MEDS ORDERED: NITROGLYCERIN 50MG VIAL ONE (08:14)
[2023-12-16] MEDS ORDERED: SODIUM BICARB 50MEQ 50ML VIAL 50 ML ONE (08:32)
[2023-12-16] MEDS: 0.9%NACL 1000ML 1,000 ML IV ONE (09:15)
[2023-12-16] MEDS ORDERED: 0.9%NACL 1000ML 1,000 ML IV SCH (10:00)
== END 2023-12-16 13:30 | disposition home or self-care (01) ==
LOC: DAH 05:52
PROVIDERS: ATTEND Internal Medicine Cardiovascular Disease
DX: R06.09 Other forms of dyspnea (principal); I25.119 Atherosclerotic heart disease of native coronary artery with unspecified angina pectoris; E11.9 Type 2 diabetes mellitus without complications; I10 Essential (primary) hypertension; K21.9 Gastro-esophageal reflux disease without esophagitis; E78.5 Hyperlipidemia, unspecified; I42.8 Other cardiomyopathies; E66.9 Obesity, unspecified; Z68.33 Body mass index [BMI] 33.0-33.9, adult; Z83.79 Family history of other diseases of the digestive system; Z82.49 Family history of ischemic heart disease and other diseases of the circulatory system; Z83.3 Family history of diabetes mellitus; Z80.52 Family history of malignant neoplasm of bladder; Z88.1 Allergy status to other antibiotic agents; Z79.82 Long term (current) use of aspirin; Z79.4 Long term (current) use of insulin; Z90.11 Acquired absence of right breast and nipple; Z79.899 Other long term (current) drug therapy; Z90.49 Acquired absence of other specified parts of digestive tract; Z98.890 Other specified postprocedural states
CPT/HCPCS: 80048; 83880; 85025; 85610; 85730; 87088; 81001; 36415; 71045; 93005; 93461; 87077; 87186; 82948 ×2; C1769; C1894 ×3; C1760; J3010; J3490 ×3; J7030; J1644 ×2; J2250; Q9967; A4215; A4335; A4222; A4221; A4663; A4216; A4606; A4520; A4223 ×3; A4554; 96360; 96361; 99156; 99157; J0583

== ENCOUNTER 2024-02-04 13:06 | Emergency (ER) | payer OTHER, MEDICARE ==
[~2024-02-04] VITALS: Ht 152.4 cm; Wt 80.3 kg
[~2024-02-04 13:06] MED LIST changes: +ARIP5TAB30 PO; -ARIP5TAB56 PO
[2024-02-04 13:38] LABS: APPEARANCE,URINE CLOUDY (CLEAR); BILIRUBIN,URINE NEGATIVE (NEGATIVE); COLOR,URINE YELLOW (YELLOW); GLUCOSE, URINE (UA) 300 mg/dL (NEGATIVE); KETONES,URINE NEGATIVE (NEGATIVE); LEUKOCYTE ESTERASE ,URINE 250 Leu/uL (NEGATIVE); NITRATE,URINE NEGATIVE (NEGATIVE); OCCULT BLOOD,URINE NEGATIVE (NEGATIVE); PROTEIN,URINE 10 mg/dL (NEGATIVE); UROBILINOGEN,URINE 0.2 mg/dL (0.2-1.0)
[2024-02-04 13:45] LABS: ADD UA MICROSCOPIC YES
[2024-02-04 13:52] LABS: BACTERIA,URINE FEW /HPF (None Seen); MUCUS,URINE RARE LPF (None Seen); SQUAMOUS EPITHELIAL CELL,UR MOD /HPF (0-2); YEAST,URINE BUDDING FEW /HPF (None Seen)
[2024-02-04 14:11] LABS: BASOPHILS # (AUTO) 0.02 K/uL (0.00-0.20); BASOPHILS % (AUTO) 0.3 % (0.0-5.0); EOSINOPHILS # (AUTO) 0.22 K/uL (0.00-0.70); EOSINOPHILS % (AUTO) 3.4 % (0.0-8.0); HEMATOCRIT 34.1 % (36-48); IMMATURE GRANULOCYTE ABSOLUTE 0.03 K/uL (0-1); LYMPHOCYTES # (AUTO) 1.5 K/uL (1.0-4.8); MEAN CORPUSCULAR HEMOGLOBIN 27.1 pg (27.0-33.0); MEAN CORPUSCULAR VOLUME 84.8 fL (79-99); MONOCYTES # (AUTO) 0.6 K/uL (0.1-1.0); MONOCYTES % (AUTO) 9.4 % (3.0-13.0); NEUTROPHILS % (AUTO) 63.4 % (40.0-77.0); PLATELET COUNT (AUTO) 183 K/uL (130-400); RED BLOOD CELL COUNT(AUTO) 4.02 MIL/uL (4.00-5.50); RED CELL DISTRIBUTION WIDTH 13.7 % (11.0-15.5); WHITE BLOOD COUNT (AUTO) 6.4 K/uL (4.8-10.8)
[2024-02-04 14:47] LABS: SARS-CoV-2, RNA, NAAT NEGATIVE SARS CoV-2 (NEGATIVE)
[2024-02-04 14:47] LABS: CREATININE 1.3 mg/dL (0.5-1.0)
[2024-02-04 14:51] LABS: ALBUMIN 3.2 g/dL (3.5-5.0); BILIRUBIN,TOTAL 0.2 mg/dL (0.2-1.0); TOTAL PROTEIN, SERUM 7.1 g/dL (6.0-8.3)
[2024-02-04 14:56] LABS: INFLUENZA TYPE A Negative For Type A (NEGATIVE); INFLUENZA TYPE B Negative For Type B (NEGATIVE)
[2024-02-04] MEDS ORDERED: CEFU500T67 PO (15:14)
[2024-02-04 15:22] VITALS: BP 143/62; PULSE 66; RESP 14; O2SAT 97
[2024-02-04] MEDS: CEFTRIAXONE 1G VIAL IVPB ONE (15:46)
[2024-02-05] MEDS ORDERED: MAGN400O17 PO (21:48)
== END 2024-02-04 16:11 | disposition home or self-care (01) ==
LOC: EDH 13:06
DX: N39.0 Urinary tract infection, site not specified (principal); R53.1 Weakness; E11.9 Type 2 diabetes mellitus without complications; E78.00 Pure hypercholesterolemia, unspecified; I10 Essential (primary) hypertension; Z79.4 Long term (current) use of insulin; Z79.82 Long term (current) use of aspirin; Z79.899 Other long term (current) drug therapy; Z88.0 Allergy status to penicillin; Z90.49 Acquired absence of other specified parts of digestive tract; Z95.1 Presence of aortocoronary bypass graft; Z20.822 Contact with and (suspected) exposure to COVID-19
CPT/HCPCS: 99283; 96374; 87635; 80053; 85025; 87040 ×2; 87077; 87088; 87186; 87804 ×2; 83605; 81001; 36415; 84145; J0696

== ENCOUNTER 2024-02-05 18:43 | Emergency (ER) | payer OTHER, MEDICARE ==
[~2024-02-05] VITALS: Ht 152.4 cm; Wt 80.3 kg
[~2024-02-05 18:43] MED LIST changes: +CEFU500T67 PO
[2024-02-05 19:27] LABS: BASOPHILS # (AUTO) 0.02 K/uL (0.00-0.20); BASOPHILS % (AUTO) 0.3 % (0.0-5.0); EOSINOPHILS # (AUTO) 0.23 K/uL (0.00-0.70); EOSINOPHILS % (AUTO) 3.4 % (0.0-8.0); IMMATURE GRANULOCYTE ABSOLUTE 0.04 K/uL (0-1); LYMPHOCYTES # (AUTO) 1.9 K/uL (1.0-4.8); LYMPHOCYTES % (AUTO) 28.5 % (21.0-51.0); MEAN CORPUSCULAR HEMOGLOBIN 26.8 pg (27.0-33.0); MEAN CORPUSCULAR HGB CONC 32.5 g/dL (32.0-36.0); MEAN CORPUSCULAR VOLUME 82.4 fL (79-99); MONOCYTES # (AUTO) 0.5 K/uL (0.1-1.0); MONOCYTES % (AUTO) 8.1 % (3.0-13.0); NEUTROPHILS # (AUTO) 3.9 K/uL (1.8-7.7); NEUTROPHILS % (AUTO) 59.1 % (40.0-77.0); PLATELET COUNT (AUTO) 181 K/uL (130-400); RED BLOOD CELL COUNT(AUTO) 4.37 MIL/uL (4.00-5.50); WHITE BLOOD COUNT (AUTO) 6.7 K/uL (4.8-10.8)
[2024-02-05 19:32] LABS: APPEARANCE,URINE CLEAR (CLEAR); BILIRUBIN,URINE NEGATIVE (NEGATIVE); COLOR,URINE LIGHT-YELLOW (YELLOW); GLUCOSE, URINE (UA) >=1000 mg/dL (NEGATIVE); KETONES,URINE NEGATIVE (NEGATIVE); LEUKOCYTE ESTERASE ,URINE NEGATIVE Leu/uL (NEGATIVE); NITRATE,URINE NEGATIVE (NEGATIVE); OCCULT BLOOD,URINE NEGATIVE (NEGATIVE); PH,URINE 5.5 (5.0-8.0); PROTEIN,URINE NEGATIVE (NEGATIVE); UROBILINOGEN,URINE 0.2 mg/dL (0.2-1.0)
[2024-02-05 19:35] LABS: ADD UA MICROSCOPIC YES
[2024-02-05 19:40] LABS: SQUAMOUS EPITHELIAL CELL,UR RARE /HPF (0-2); YEAST,URINE BUDDING MOD /HPF (None Seen)
[2024-02-05 19:46] LABS: CREATININE 1.2 mg/dL (0.5-1.0); POTASSIUM 3.7 mmol/L (3.5-5.1)
[2024-02-05 19:51] LABS: ALBUMIN 3.3 g/dL (3.5-5.0); BILIRUBIN,TOTAL 0.2 mg/dL (0.2-1.0); TOTAL PROTEIN, SERUM 7.4 g/dL (6.0-8.3)
[2024-02-05] MEDS ORDERED: MAGN400O17 PO (21:48)
[2024-02-05 21:53] VITALS: BP 154/54; PULSE 67; RESP 20; O2SAT 98
[2024-02-05] MEDS: MAGNESIUM HYDROXIDE 30 ML/UDCUP PO SCH (21:54)
[2024-02-05] MEDS: MAGNESIUM HYDROXIDE 30 ML/UDCUP ONE (21:54)
== END 2024-02-05 22:01 | disposition home or self-care (01) ==
LOC: EDH 18:43
DX: K59.00 Constipation, unspecified (principal); E11.9 Type 2 diabetes mellitus without complications; E78.00 Pure hypercholesterolemia, unspecified; I10 Essential (primary) hypertension; Z79.4 Long term (current) use of insulin; Z79.82 Long term (current) use of aspirin; Z79.899 Other long term (current) drug therapy; Z86.73 Personal history of transient ischemic attack (TIA), and cerebral infarction without residual deficits; Z87.440 Personal history of urinary (tract) infections; Z88.0 Allergy status to penicillin; Z90.49 Acquired absence of other specified parts of digestive tract; Z95.1 Presence of aortocoronary bypass graft
CPT/HCPCS: 36415; 74176; 80053; 81001; 83690; 84484; 85025; 93005

== ENCOUNTER 2024-02-17 06:53 | Day surgery (SDC) | payer OTHER, MEDICARE ==
[~2024-02-17] VITALS: Ht 152.4 cm; Wt 76.2 kg
[2024-02-17] VITALS (9 sets, daily range): BP systolic 93–110; BP diastolic 51–59; PULSE 80–87; RESP 15–17
[~2024-02-17 06:53] MED LIST changes: +MAGN400O17 PO
[2024-02-17] MEDS ORDERED: MIRT-22 PO (09:05)
[2024-02-17] MEDS: 0.9%NACL 1000ML 1,000 ML IV ONE (09:05)
[2024-02-17] MEDS ORDERED: INS7030 SQ (09:10)
[2024-02-17] MEDS ORDERED: ACET-2079 PO (09:10)
[2024-02-17] MEDS ORDERED: BACL10TA PO (09:10)
[2024-02-17] MEDS ORDERED: DAPA10TA PO (09:10)
[2024-02-17] MEDS ORDERED: PROPOFOL 10 MG/ML 20ML VIAL IV ONE (11:11)
[2024-02-17] MEDS ORDERED: EPHEDRINE SULFATE 50 MG/ML AMPULE ONE (11:22)
== END 2024-02-17 12:50 | disposition home or self-care (01) ==
LOC: ENDO 06:53 → DAH 06:53 → ENDO 12:50
PROVIDERS: ATTEND Internal Medicine Gastroenterology
DX: R13.10 Dysphagia, unspecified (principal); K22.2 Esophageal obstruction; R10.13 Epigastric pain; K21.00 Gastro-esophageal reflux disease with esophagitis, without bleeding; K44.9 Diaphragmatic hernia without obstruction or gangrene; K29.30 Chronic superficial gastritis without bleeding; E11.9 Type 2 diabetes mellitus without complications; K59.04 Chronic idiopathic constipation; R94.5 Abnormal results of liver function studies; D64.9 Anemia, unspecified; F32.A Depression, unspecified; E78.5 Hyperlipidemia, unspecified; F41.9 Anxiety disorder, unspecified; M81.0 Age-related osteoporosis without current pathological fracture; M19.90 Unspecified osteoarthritis, unspecified site; Z86.010 Personal history of colon polyps; Z90.49 Acquired absence of other specified parts of digestive tract; Z95.1 Presence of aortocoronary bypass graft; Z79.82 Long term (current) use of aspirin; Z79.899 Other long term (current) drug therapy
CPT/HCPCS: 43249; 82948; 43239; J7030 ×2; J3490; J2704; A4620; A4215 ×2; A4223; A7002; A4222; A4221; A4663; A4606; C1726

== ENCOUNTER → 2024-02-24 | Outpatient (CLI) | payer OTHER, MEDICARE ==
[~2024-02-24] MED LIST changes: +ACET-2079 PO; -ARIP5TAB30 PO; +BACL10TA PO; -CEFU500T67 PO; -CHLO10TA19 PO; +DAPA10TA PO; +INS7030 SQ; -INSU100V37 SQ; -LINA145C PO; -LINA5TAB PO; -MAGN400O17 PO; +MIRT-22 PO; -MIRT-73 PO; -NORT10CA2 PO; -SUCR1TAB2 PO
== END | disposition home or self-care (01) ==
LOC: RAH 15:04
PROVIDERS: ATTEND Internal Medicine Gastroenterology
DX: K59.04 Chronic idiopathic constipation (principal); M47.815 Spondylosis without myelopathy or radiculopathy, thoracolumbar region; M25.852 Other specified joint disorders, left hip; M25.851 Other specified joint disorders, right hip
CPT/HCPCS: 74021

== ENCOUNTER → 2024-05-19 | Outpatient (CLI) | payer OTHER, MEDICARE | END | disposition home or self-care (01) | LOC: RAH 10:12 | PROVIDERS: ATTEND Internal Medicine Gastroenterology | DX: K30 Functional dyspepsia (principal); R11.0 Nausea | CPT/HCPCS: 78264; A9541 ==

== ENCOUNTER 2025-02-10 22:45 | Emergency (ER) | payer OTHER, MEDICARE ==
[~2025-02-10] VITALS: Ht 157.5 cm; Wt 74.8 kg
[~2025-02-10 22:45] MED LIST changes: -ACET-2079 PO; -BACL10TA PO; +BENZ200C53 PO; -CARB200T5 PO; -DAPA10TA PO; +DEXL60CA3 PO; +FLUT1BLS3 IH; -INS7030 SQ; +INSU200I4 SQ; +LINA290C PO; +MAG-37 PO; -MIRT-22 PO; +NORT10CA2 PO; -OMEP40CA21 PO; +PANT40TA55 PO; -ROSU20TA73 PO; +ROSU20TA98 PO; -SEMA1PEN3 SQ; +TRAZ-185 PO; +ZOLP-685 PO
--- NOTE | 2025-02-10 23:21 | EKG ---
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
[2025-02-10 23:23] LABS: BASOPHILS # (AUTO) 0.02 K/uL (0.00-0.20); BASOPHILS % (AUTO) 0.3 % (0.0-5.0); EOSINOPHILS # (AUTO) 0.27 K/uL (0.00-0.70); EOSINOPHILS % (AUTO) 3.5 % (0.0-8.0); HEMATOCRIT 33.6 % (36-48); IMMATURE GRANULOCYTE ABSOLUTE 0.03 K/uL (0-1); LYMPHOCYTES # (AUTO) 2.3 K/uL (1.0-4.8); LYMPHOCYTES % (AUTO) 30.4 % (21.0-51.0); MEAN CORPUSCULAR HEMOGLOBIN 27.4 pg (27.0-33.0); MEAN CORPUSCULAR HGB CONC 32.7 g/dL (32.0-36.0); MEAN CORPUSCULAR VOLUME 83.8 fL (79-99); MONOCYTES # (AUTO) 0.7 K/uL (0.1-1.0); MONOCYTES % (AUTO) 8.6 % (3.0-13.0); NEUTROPHILS # (AUTO) 4.3 K/uL (1.8-7.7); NEUTROPHILS % (AUTO) 56.8 % (40.0-77.0); PLATELET COUNT (AUTO) 155 K/uL (130-400); RED BLOOD CELL COUNT(AUTO) 4.01 MIL/uL (4.00-5.50); RED CELL DISTRIBUTION WIDTH 14.2 % (11.0-15.5); WHITE BLOOD COUNT (AUTO) 7.6 K/uL (4.8-10.8)
[2025-02-10 23:40] LABS: APPEARANCE,URINE CLEAR (CLEAR); BACTERIA,URINE FEW /HPF (None Seen); BILIRUBIN,URINE NEGATIVE (NEGATIVE); COLOR,URINE COLORLESS (YELLOW); GLUCOSE, URINE (UA) >=1000 mg/dL (NEGATIVE); KETONES,URINE NEGATIVE (NEGATIVE); LEUKOCYTE ESTERASE ,URINE NEGATIVE Leu/uL (NEGATIVE); MUCUS,URINE RARE LPF (None Seen); NITRATE,URINE NEGATIVE (NEGATIVE); OCCULT BLOOD,URINE NEGATIVE (NEGATIVE); PROTEIN,URINE NEGATIVE (NEGATIVE); UROBILINOGEN,URINE 0.2 mg/dL (0.2-1.0)
[2025-02-10 23:41] LABS: CREATININE 1.5 mg/dL (0.5-1.0); POTASSIUM 3.8 mmol/L (3.5-5.1)
[2025-02-10] MEDS: ketOROlac 15MG/ML VIAL (15MG/ML) IV ONE (23:47)
[2025-02-10] MEDS: 0.9%NACL 1000ML 1,000 ML IV ONE (23:47)
--- NOTE | 2025-02-11 00:21 | ERN ---
ED Note History of Present Illness Stated Complaint: LEFT LOWER BACK PAIN Chief Complaint: Back Pain-No Injury Time Seen by MD: 22:54 Time Seen by Midlevel: 22:54 Dictation: The patient is a 74-year-old female with a history of diabetes, hypertension, cholecystectomy, CABG who presents to the emergency department with complaints of left flank pain that radiates to her lower abdomen onset three days ago. Patient denies any trauma. Denies any nausea or vomiting, diarrhea or constipation, denies any urinary discomfort, denies any fevers. Denies any urinary or fecal incontinence. Allergies: Coded Allergies: amoxicillin (Unverified Allergy, Unknown, 04/23/23) Home Meds Active Scripts Mag Hydrox/Aluminum Hyd/Simeth (Maalox Advanced Suspension) 200 Mg-200 Mg-20 Mg/5 Ml Oral.susp, 20 ML PO Q8H for 7 Days, #500 ML 0 Refills Prov:KELLIE OGDEN MD 01/17/25 Pantoprazole Sodium (Protonix) 40 Mg Ectab, 1 TAB PO DAILY for 30 Days, #30 TAB 0 Refills Prov:KELLIE OGDEN MD 01/17/25 Reported Medications Trazodone HCl (Trazodone HCl) 50 Mg Tablet, 1 TAB PO HS for 30 Days, #30 TAB 0 Refills 09/28/24 Insulin Degludec (Tresiba Flextouch U-200) 200 Unit/Ml (3 Ml) Insuln.pen, 100 UNITS SQ AM 09/28/24 Zolpidem Tartrate (Ambien) 10 Mg Tablet, 10 MG PO HS PRN for INSOMNIA/SLEEP 09/28/24 Benzonatate (Benzonatate) 200 Mg Capsule, 1 CAP PO TID for cough for 10 Days, #30 CAP 0 Refills 09/28/24 Dexlansoprazole (Dexilant) 60 Mg Chad., 1 CAP PO DAILY for 30 Days, #30 CAP 0 Refills 09/28/24 Fluticasone/Umeclidin/Vilanter (Trelegy Ellipta 100-62.5-25) 100-62.5 Blst.w.dev, 1 PUFF IH DAILY 09/28/24 Linaclotide (Linzess) 290 Mcg Capsule, 1 CAP PO DAILY 09/28/24 Nortriptyline HCl (Nortriptyline HCl) 10 Mg Capsule, 1 CAP PO HS for 30 Days, #30 CAP 0 Refills 09/28/24 Aspirin (Aspirin) 81 Mg Tab.chew, 81 MG PO DAILY, TAB.CHEW 07/22/23 Losartan/Hydrochlorothiazide (Losartan-Hctz 50-12.5 mg Tab) 50 Mg-12.5 Mg Tablet, 1 EACH PO DAILY, TAB 07/22/23 Rosuvastatin Calcium (Rosuvastatin Calcium) 20 Mg Tablet, 20 MG PO AM, TAB 04/09/20 Past Medical History Past Medical History: Diabetes-Type II, High Cholesterol, Heart Disease, Hypertension, UTI, Other Additional Past Medical Hx: HX OF BREAST CA (IN REMISSION) Surgical History: Hysterectomy, CABG, Other Surgical History Other: CARDIAC SX; (2015); LEFT MASTECTOMY Family History: Negative Social History: Negative RN Note Reviewed/Agreed w/PFSH: Yes Review of System Dictation Constitutional: Negative for fever,chills, and weight loss Eyes: Negative for injury, pain,redness, and discharge ENT: Negative for injury,pain or swelling Cardiovascular: Negative for chest pain, palpitations, and edema Respiratory: Negative for shortness of breath, cough, and wheezing, Abdomen/GI: Negative for nausea, vomiting, diarrhea, and constipation positive for lower abdominal pain Back: Negative for injury and pain : Negative for injury, bleeding and discharge positive for left flank pain MS/Extremity: Negative for injury and deformity Skin: Negative for rash, and discoloration Neuro: Negative for headache, weakness, numbness, tingling, and seizure Psych: Negative for suicide ideation, homicidal ideation, and hallucinations Initial Vital Sign VS Vital Signs Date Time Temp Pulse Resp B/P (MAP) Pulse Ox O2 Delivery O2 Flow Rate FiO2 02/10/25 22:47 98.1 70 20 136/60 97 Room Air 02/10/25 23:25 0 21 Physical Exam Dictation Vital Signs reviewed General Appearance: Alert, oriented x 3, no acute distress, well developed, nourished. Head and Face: non-traumatic. Eyes: PERRL, pink conjunctivas, eyelid no trauma, anterior chamber with arcus senilis. Ears: Pinnas intact and no signs of trauma or erythema ear canals clear and no discharge TM no erythema Nose: No discharge, no bleeding. Oropharynx: Mouth normal, tongue pink. pharynx clear,no erythema, tonsils no exudates, no abscesses noted, mucous membrane moist Neck: Supple, non-tender, no thyromegaly, no masses, no JVD, no bruits Breast:Deferred Chest:No tenderness, no crepitus, no paradoxical movement, no retractions Lungs:Clear, well-ventilated, symmetric, no rales, no wheezing, no rhonchi, no stridor, good breath sounds bilaterally Heart: Regular rate, regular rhythm, no murmur, no gallops Vascular: no peripheral edema, Abdomen: Soft, positive bowel sounds, nondistended, no guarding, nontender, no rebound, no masses no hepatomegaly, no splenomegaly, no Salinas's sign, no hernias. Rectal: Deferred Genital: Deferred Neurological: Normal speech, motor function intact, sensory function intact Musculoskeletal: Neck nontender, full range of motion, back nontender, full range of motion, left flank pain Extremities: nontender, full range of motion Skin: Color pink, dry, no turgor, no rash, no lacerations, no abrasions, no contusions. Lymphatic: Deferred Results (Laboratory/Radiology) Laboratory/Radiology Laboratory Tests Test 02/10/25 23:17 02/10/25 23:30 02/11/25 00:35 02/11/25 01:19 White Blood Count 7.6 K/uL (4.8-10.8) Red Blood Count 4.01 MIL/uL (4.00-5.50) Hemoglobin 11.0 g/dL (12.0-16.0) L Hematocrit 33.6 % (36-48) L Mean Corpuscular Volume 83.8 fL (79-99) Mean Corpuscular Hemoglobin 27.4 pg (27.0-33.0) Mean Corpuscular Hemoglobin Concent 32.7 g/dL (32.0-36.0) Red Cell Distribution Width 14.2 % (11.0-15.5) Platelet Count 155 K/uL (130-400) Mean Platelet Volume 11.1 fL (7.5-10.5) H Immature Granulocyte % (Auto) 0.4 % (0-1) Neutrophils (%) (Auto) 56.8 % (40.0-77.0) Lymphocytes (%) (Auto) 30.4 % (21.0-51.0) Monocytes (%) (Auto) 8.6 % (3.0-13.0) Eosinophils (%) (Auto) 3.5 % (0.0-8.0) Basophils (%) (Auto) 0.3 % (0.0-5.0) Neutrophils # (Auto) 4.3 K/uL (1.8-7.7) Lymphocytes # (Auto) 2.3 K/uL (1.0-4.8) Monocytes # (Auto) 0.7 K/uL (0.1-1.0) Eosinophils # (Auto) 0.27 K/uL (0.00-0.70) Basophils # (Auto) 0.02 K/uL (0.00-0.20) Absolute Immature Granulocyte (auto 0.03 K/uL (0-1) Nucleated Red Blood Cells 0.0 % (0.0-0.19) Sodium Level 133 mmol/L (136-145) L Potassium Level 3.8 mmol/L (3.5-5.1) Chloride Level 98 mmol/L (101-111) L Carbon Dioxide Level 27 mmol/L (21-32) Blood Urea Nitrogen 22 mg/dL (7-18) H Creatinine 1.5 mg/dL (0.5-1.0) H Glomerular Filtration Rate Calc 36 mL/min (>90) Random Glucose 473 mg/dL (70-105) *H Total Calcium 9.1 mg/dL (8.5-10.1) Total Creatine Kinase 53 U/L (21-232) # Troponin I High Sensitivity 15 ng/L (4-50) Urine Color COLORLESS (YELLOW) Urine Appearance CLEAR (CLEAR) Urine pH 5.0 (5.0-8.0) Urine Specific [place] 1.008 (1.001-1.031) Urine Protein NEGATIVE mg/dL (NEGATIVE) Urine Glucose (UA) >=1000 mg/dL (NEGATIVE) H Urine Ketones NEGATIVE mg/dL (NEGATIVE) Urine Occult Blood NEGATIVE (NEGATIVE) Urine Nitrate NEGATIVE (NEGATIVE) Urine Bilirubin NEGATIVE mg/dL (NEGATIVE) Urine Urobilinogen 0.2 mg/dL (0.2-1.0) Urine Leukocyte Esterase NEGATIVE Harshad/uL Urine RBC None /HPF (0-1) Urine WBC 2-5 /HPF (0-1) H Urine Bacteria FEW /HPF (None Seen) Whole Blood Glucose 427 MG/DL (70-110) *H 274 MG/DL (70-110) H Bedside Glucose Comment Notified Nurse REASON: left flank pain, lower abd pain ORDERING PHYSICIAN: MICHELLE FLORES PROCEDURE: ABD PEL WO - CT ABDOMEN/PELVIS W/O CONTRAST CT ABDOMEN/PELVIS W/O CONTRAST HISTORY: Left flank pain COMPARISON: 01/16/2025 TECHNIQUE: Multiple sequential axial images of the abdomen and pelvis were obtained from the dome of the diaphragm through symphysis pubis. Patient was not given contrast through intravenous route. Oral contrast was not given. FINDINGS: No pleural effusion is seen bilaterally. There is no evidence of parenchymal disease or pulmonary nodule of the visualized lower lungs. There is superior endplate compression fracture of L3 with 50% loss of height. Degenerative changes of the thoracolumbar spine are present. The heart is not enlarged. The liver measured 12 cm. Postcholecystectomy changes are seen. No obstruction is seen. The liver, spleen, adrenal glands and pancreas are unremarkable. There is no evidence of hydronephrosis bilaterally. No evidence of renal stone is seen. There is left renal cyst measuring 2.7 cm. Fecal material is seen in the colon. There is mild diverticulosis. There are normal size retroperitoneal and mesenteric lymph nodes. No ascites is seen. Atherosclerotic changes are present. Pelvic sidewalls are symmetric bilaterally. Bladder is well distended without wall thickening. Tiny amount of air collection is seen in the bladder. Uterus is enlarged suggesting fibroid uterus. IMPRESSION: 1. Tiny amount of air is seen in the bladder. Uterus is enlarged suggestive of fibroid uterus. No bowel obstruction. Fecal material in the colon. CT was performed with one or more following dose reduction techniques: automated exposure control, adjustment of the mA and kv according to patient's size, or use of a iterative reconstruction technique. Labs Reviewed?: Yes EKG: (+) rhythm (Sinus rhythm), (+) unchanged EKG Comment: Date:02/10/2025 Time:2317 Ventricular rate:70 NJ interval:156 QRS duration:134 QT/QTc:467 EKG interpretation: Sinus rhythm, left bundle-branch block Reviewed by ED Attending no STEMI ED Course ED Course Orders Procedure Category Date Status Time Cbc With Differential LAB 02/10/25 Complete 23:07 Troponin I High LAB 02/10/25 Complete Sensitivity 23:07 12 Lead Ekg Tracing- EKG 02/10/25 Complete Technical 23:07 0.9%Nacl 1000ml (Ns PHA 02/10/25 In Process 1000ml) 23:30 Ketorolac PHA 02/10/25 Complete Tromethamine 15mg/Ml 23:30 Ct Abdomen/Pelvis W/O CT 02/10/25 Resulted Contrast 23:07 Basic Metabolic Panel LAB 02/10/25 Complete 23:07 Creatine Kinase, Total LAB 02/10/25 Complete 23:07 Urinalysis LAB 02/10/25 Complete W/Microscopic 23:30 Insulin Regular, PHA 02/11/25 Complete Human 3ml (Humulin R 00:00 Bedside Glucose CPOE 02/11/25 Transmitted Fingerstick 00:34 Current Medications Medications (Trade) Dose Ordered Sig/Joanna Route PRN Reason Start Time Stop Time Status Last Admin Dose Admin Insulin Human Regular (humuLIN R 100 UNIT/ML 3ML) 10 unit ONCE ONCE IV 02/11/25 00:00 02/11/25 00:01 DC 02/11/25 00:32 Ketorolac Tromethamine (toRADol) 15 mg ONCE ONCE IV 02/10/25 23:30 02/10/25 23:31 DC 02/10/25 23:47 Sodium Chloride 1,000 ml @ 125 mls/hr ONCE ONCE IV 02/10/25 23:30 02/11/25 07:29 02/10/25 23:47 Vital Signs Date Time Temp Pulse Resp B/P (MAP) Pulse Ox O2 Delivery O2 Flow Rate FiO2 02/11/25 01:11 97.9 70 18 137/51 99 Room Air* 0 21 02/11/25 00:30 98.8 69 18 132/56 Room Air* 0 21 02/10/25 23:25 98.1 67 18 128/54 99 Room Air* 0 21 02/10/25 22:47 98.1 70 20 136/60 97 Room Air Medical Decision Making MDM The patient is a 74-year-old female with a history of diabetes, hypertension, cholecystectomy, CABG who presents to the emergency department with complaints of left flank pain that radiates to her lower abdomen onset three days ago. Patient denies any trauma. Denies any nausea or vomiting, diarrhea or constipation, denies any urinary discomfort, denies any fevers. Denies any fecal or urinary incontinence. CBC showed no leukocytosis, mild normocytic anemia, chemistry showed elevated blood glucose of 473, of a gap of eight, Patient shift insulin and fluids which brought it down to 274, hyponatremia, hypochloremia, creatinine of 1.5, GFR of 3 6 negative troponin, negative leukocyte esterase and nitrites, CT showed fecal material in the colon, enlarged uterus, endplate compression fracture of L3 which has been seen on previous CTs. and patietn aware of fracture. Patient with no neurovascular deficits. No evidence of hydronephrosis or renal stones. There is a left renal cyst measuring 2.7 cm. Patient in no acute distress, nontoxic appearance. Stable vital signs will be discharged to follow up with PCP. Differential diagnosis: Pyelonephritis, kidney stone, UTI, dehydration Need for hospitalization: Patient does not meet criteria for hospitalization. There are no social concerns with this patient. DX & DISP Disposition: Discharge Departure Impression: Primary Impression: Left flank pain Additional Impressions: Uncontrolled diabetes mellitus with hyperglycemia, L3 vertebral fracture, Low back pain, Renal cyst, left Condition: Stable Additional Instructions: Please follow up with your primary doctor in 1-2 days. If symptoms worsen please return to ER. FOLLOW-UP WITH PRIMARY CARE PROVIDER IN 1 TO 2 DAYS. TAKE MEDICATIONS DIRECTED HERE IN THE EMERGENCY ROOM. OKAY TO CONTINUE HOME MEDICATIONS UNLESS OTHERWISE DISCUSSED DURING YOUR VISIT IN THE EMERGENCY ROOM TODAY. RETURN TO YOUR NEAREST EMERGENCY ROOM IF SYMPTOMS WORSEN OR IF THERE IS NO IMPROVEMENT. CALL 911 IF YOU NEED IMMEDIATE ASSISTANCE. TAKE TYLENOL OR MOTRIN [id number] NEEDED AND IF NO CONTRAINDICATIONS ARE PRESENT. INCREASE ORAL HYDRATION. A WOUND CULTURE OR URINE CULTURE WAS ORDERED HERE IN THE EMERGENCY ROOM DEPARTMENT PLEASE FOLLOW-UP WITH PRIMARY CARE PROVIDER AND ADVISE THEM TO GET REPEAT PORTS FROM OUR FACILITY. IF YOU HAD ANY GAURANG WRAP/SPLINTS THAT WERE APPLIED HERE, PLEASE DO NOT REMOVE THEM UNTIL YOU SEE YOUR PRIMARY CARE OR SPECIALTY. Referrals: JT MCCABE MD (PCP) Time of Disposition: 01:25 I have reviewed the case, and I agree with, Diagnosis and Plan MICHELLE FLORES Feb 11, 2025 00:21
--- NOTE | 2025-02-11 00:30 | HMCIMG ---
CT ABDOMEN/PELVIS W/O CONTRAST HISTORY: Left flank pain COMPARISON: 01/16/2025 TECHNIQUE: Multiple sequential axial images of the abdomen and pelvis were obtained from the dome of the diaphragm through symphysis pubis. Patient was not given contrast through intravenous route. Oral contrast was not given. FINDINGS: No pleural effusion is seen bilaterally. There is no evidence of parenchymal disease or pulmonary nodule of the visualized lower lungs. There is superior endplate compression fracture of L3 with 50% loss of height. Degenerative changes of the thoracolumbar spine are present. The heart is not enlarged. The liver measured 12 cm. Postcholecystectomy changes are seen. No obstruction is seen. The liver, spleen, adrenal glands and pancreas are unremarkable. There is no evidence of hydronephrosis bilaterally. No evidence of renal stone is seen. There is left renal cyst measuring 2.7 cm. Fecal material is seen in the colon. There is mild diverticulosis. There are normal size retroperitoneal and mesenteric lymph nodes. No ascites is seen. Atherosclerotic changes are present. Pelvic sidewalls are symmetric bilaterally. Bladder is well distended without wall thickening. Tiny amount of air collection is seen in the bladder. Uterus is enlarged suggesting fibroid uterus. IMPRESSION: 1. Tiny amount of air is seen in the bladder. Uterus is enlarged suggestive of fibroid uterus. No bowel obstruction. Fecal material in the colon. CT was performed with one or more following dose reduction techniques: automated exposure control, adjustment of the mA and kv according to patient's size, or use of a iterative reconstruction technique.
[2025-02-11] MEDS: INSULIN humuLIN R 100 UNIT/ML 3ML IV ONE (00:32)
[2025-02-11 01:11] VITALS: BP 137/51; PULSE 70; RESP 18; TEMP 97.8; O2SAT 99
== END 2025-02-11 01:36 | disposition home or self-care (01) ==
LOC: EDH 22:45
DX: E11.65 Type 2 diabetes mellitus with hyperglycemia (principal); M48.56XA Collapsed vertebra, not elsewhere classified, lumbar region, initial encounter for fracture; M54.50 Low back pain, unspecified; N28.1 Cyst of kidney, acquired; E78.00 Pure hypercholesterolemia, unspecified; I10 Essential (primary) hypertension; Z79.82 Long term (current) use of aspirin; Z79.899 Other long term (current) drug therapy; Z88.0 Allergy status to penicillin; Z85.3 Personal history of malignant neoplasm of breast; Z90.710 Acquired absence of both cervix and uterus; Z95.1 Presence of aortocoronary bypass graft
CPT/HCPCS: 99285; 74176; 96374; 96361; 82550; 84484; 80048; 85025; 82948 ×2; 81001; 36415; 93005; 96375; J1885; J7030; J1815; 99284

== ENCOUNTER → 2025-03-27 | Outpatient (CLI) | payer OTHER, MEDICARE ==
--- NOTE | 2025-03-27 14:42 | HMCIMG ---
Exam Type: US ARTERIAL BILAT LOW EXT DUPL Clinical Information: pain in legs,unspecified Comparison: None Findings: Diffuse bilateral plaque is identified. There are normal triphasic waveforms of the entire right lower extremity, and the left side from the common femoral artery through the mid superficial femoral artery. There are biphasic waveforms of the left side distal superficial femoral artery, popliteal artery, and posterior tibial artery consistent with moderate nonocclusive hemodynamically significant disease. There are monophasic abnormal waveforms of the left anterior tibial artery and dorsalis pedis artery consistent with severe nonocclusive disease. IMPRESSION: Peripheral vascular disease as noted.
== END | disposition home or self-care (01) ==
LOC: RAH 12:42
PROVIDERS: ATTEND Internal Medicine
DX: I70.293 Other atherosclerosis of native arteries of extremities, bilateral legs (principal); M79.604 Pain in right leg; M79.605 Pain in left leg
CPT/HCPCS: 93925

== ENCOUNTER 2025-10-08 01:50 | Emergency (ER) | payer OTHER, MEDICARE ==
[~2025-10-08] VITALS: Ht 152.4 cm; Wt 77.1 kg
--- NOTE | 2025-10-08 02:01 | ERN ---
ED Note History of Present Illness Stated Complaint: HIP PAIN Chief Complaint: Hip Pain/Injury Time Seen by MD: 01:53 Dictation: Patient is a 59-year-old female with a past medical history of diabetes, CAD, CABG, hyperlipidemia who presented to the ER complaining of several days with a sciatic pain affecting her left side of her lower extremity, stated that she has taken Tylenol and Motrin without improvement. Allergies: Coded Allergies: amoxicillin (Unverified Allergy, Unknown, 04/23/23) Home Meds Active Scripts Lidocaine (Lidocaine Pain Relief) 4 % Adh..patch, 1 PATCH TP DAILY for 10 Days, #10 PATCH 0 Refills Prov:LIBERTY BOUCHER MD 10/08/25 Ibuprofen (Ibuprofen) 400 Mg Tablet, 1 TAB PO TID for pain or fever for 5 Days, #15 TAB 0 Refills Prov:LIBERTY BOUCHER MD 10/08/25 Acetaminophen (Tylenol) 500 Mg Tab, 1 TAB PO Q6HPRN PRN for pain or fever for 15 Days, #60 TAB 0 Refills Prov:LIBERTY BOUCHER MD 10/08/25 Mag Hydrox/Aluminum Hyd/Simeth (Maalox Advanced Suspension) 200 Mg-200 Mg-20 Mg/5 Ml Oral.susp, 20 ML PO Q8H for 7 Days, #500 ML 0 Refills Prov:KELLIE OGDEN MD 01/17/25 Pantoprazole Sodium (Protonix) 40 Mg Ectab, 1 TAB PO DAILY for 30 Days, #30 TAB 0 Refills Prov:KELLIE OGDEN MD 01/17/25 Reported Medications Trazodone HCl (Trazodone HCl) 50 Mg Tablet, 1 TAB PO HS for 30 Days, #30 TAB 0 Refills 09/28/24 Insulin Degludec (Tresiba Flextouch U-200) 200 Unit/Ml (3 Ml) Insuln.pen, 100 UNITS SQ AM 09/28/24 Zolpidem Tartrate (Ambien) 10 Mg Tablet, 10 MG PO HS PRN for INSOMNIA/SLEEP 09/28/24 Benzonatate (Benzonatate) 200 Mg Capsule, 1 CAP PO TID for cough for 10 Days, #30 CAP 0 Refills 09/28/24 Dexlansoprazole (Dexilant) 60 Mg Chad., 1 CAP PO DAILY for 30 Days, #30 CAP 0 Refills 09/28/24 Fluticasone/Umeclidin/Vilanter (Trelegy Ellipta 100-62.5-25) 100-62.5 Blst.w.dev, 1 PUFF IH DAILY 09/28/24 Linaclotide (Linzess) 290 Mcg Capsule, 1 CAP PO DAILY 09/28/24 Nortriptyline HCl (Nortriptyline HCl) 10 Mg Capsule, 1 CAP PO HS for 30 Days, #30 CAP 0 Refills 09/28/24 Aspirin (Aspirin) 81 Mg Tab.chew, 81 MG PO DAILY, TAB.CHEW 07/22/23 Losartan/Hydrochlorothiazide (Losartan-Hctz 50-12.5 mg Tab) 50 Mg-12.5 Mg Tablet, 1 EACH PO DAILY, TAB 07/22/23 Rosuvastatin Calcium (Rosuvastatin Calcium) 20 Mg Tablet, 20 MG PO AM, TAB 04/09/20 Past Medical History Past Medical History: Diabetes-Type II, High Cholesterol, Heart Disease, Hypertension, UTI, Other Additional Past Medical Hx: HX OF BREAST CA (IN REMISSION) Surgical History: Hysterectomy, CABG, Other Surgical History Other: CARDIAC SX; (2014); LEFT MASTECTOMY Family History: Negative Social History: Negative Review of System Dictation NEGATIVE EXCEPT PER HPI Constitutional: Negative for fever,chills, and weight loss Eyes: Negative for injury, pain,redness, and discharge ENT: Negative for injury,pain or swelling Cardiovascular: denies chest pain, palpitations, and edema Respiratory: Negative for shortness of breath, cough, and wheezing, Abdomen/GI: Negative for abdominal pain, nausea, vomiting, diarrhea, and constipation Back: Negative for injury and pain : Negative for injury, bleeding and discharge MS/Extremity: Left lower back pain radiating to the left foot. Skin: Negative for rash, and discoloration Neuro: Negative for headache, weakness, numbness, tingling, and seizure Psych: Negative for suicide ideation, homicidal ideation, and hallucinations Initial Vital Sign VS Vital Signs Date Time Temp Pulse Resp B/P (MAP) Pulse Ox O2 Delivery O2 Flow Rate FiO2 10/08/25 01:52 98.1 60 18 146/84 100 Room Air 10/08/25 02:21 0 21 Physical Exam Dictation General: awake, alert, NAD Head/Face: Normocephalic, atraumatic Eyes: PERRL, EOMI, vision at baseline ENT: oral cavity clear, TMs clear, no signs of infection Neck: Trachea midline, supple, no nuchal rigidity Cardiovascular: RRR, normal S1/S2, No MRGs, no JVD Respiratory: CTAB, no respiratory distress, No rales or wheezes Abdomen: Soft , no tender Skin: Warm, dry, normal turgor, no rash MS/Extremity: Pulses equal, no cyanosis, neurovascular intact, FROM Neuro: COAx4, GCS 15, strength 5/5, CN 2-12 intact, normal cerebellar exam, ant algic normal gait, Psych: Normal behavior, mood, and affect normal Results (Laboratory/Radiology) Laboratory/Radiology Laboratory Tests Test 10/08/25 02:15 10/08/25 03:33 White Blood Count 8.6 K/uL (4.8-10.8) Red Blood Count 4.29 MIL/uL (4.00-5.50) Hemoglobin 11.0 g/dL (12.0-16.0) L Hematocrit 34.7 % (36-48) L Mean Corpuscular Volume 80.9 fL (79-99) Mean Corpuscular Hemoglobin 25.6 pg (27.0-33.0) L Mean Corpuscular Hemoglobin Concent 31.7 g/dL (32.0-36.0) L Red Cell Distribution Width 15.4 % (11.0-15.5) Platelet Count 169 K/uL (130-400) Mean Platelet Volume 10.5 fL (7.5-10.5) Nucleated Red Blood Cells 0.0 % (0.0-0.19) Sodium Level 135 mmol/L (136-145) L Potassium Level 4.0 mmol/L (3.5-5.1) Chloride Level 104 mmol/L (101-111) Carbon Dioxide Level 25 mmol/L (21-32) Blood Urea Nitrogen 23 mg/dL (7-18) H Creatinine 1.6 mg/dL (0.5-1.0) H Glomerular Filtration Rate Calc 33 mL/min (>90) Random Glucose 172 mg/dL (70-105) H Total Calcium 8.7 mg/dL (8.5-10.1) Urine Color COLORLESS (YELLOW) Urine Appearance CLEAR (CLEAR) Urine pH 5.5 (5.0-8.0) Urine Specific [place] 1.009 (1.001-1.031) Urine Protein NEGATIVE mg/dL (NEGATIVE) Urine Glucose (UA) 200 mg/dL (NEGATIVE) H Urine Ketones NEGATIVE mg/dL (NEGATIVE) Urine Occult Blood NEGATIVE (NEGATIVE) Urine Nitrate NEGATIVE (NEGATIVE) Urine Bilirubin NEGATIVE mg/dL (NEGATIVE) Urine Urobilinogen 0.2 mg/dL (0.2-1.0) Urine Leukocyte Esterase 250 Harshad/uL (NEGATIVE) H Urine RBC 0-1 /HPF (0-1) Urine WBC 11-25 /HPF (0-1) H Urine Bacteria RARE /HPF (None Seen) ED Course ED Course Orders Procedure Category Date Status Time Cbc Without LAB 10/08/25 Complete Differential 01:54 Basic Metabolic Panel LAB 10/08/25 Complete 01:54 Urinalysis Profile LAB 10/08/25 Complete 01:54 Acetaminophen With PHA 10/08/25 Complete Codeine (Tylenol-Code 02:00 Lumbar Spine 2-3vws RAD 10/08/25 Logged 02:04 Morphine 2mg Syg PHA 10/08/25 Complete (Morphine 2mg Syg) 03:00 Culture Urine LEONARDO 10/08/25 In Process 03:49 Ibuprofen 600 Mg PHA 10/08/25 Complete Tablet (Motrin) 05:00 Current Medications Medications (Trade) Dose Ordered Sig/Joanna Route PRN Reason Start Time Stop Time Status Last Admin Dose Admin Acetaminophen/ Codeine Phosphate (TYLenol-coDEINE TAB) 1 tab ONCE ONCE PO 10/08/25 02:00 10/08/25 02:02 DC 10/08/25 02:19 Ibuprofen (moTRIN) 600 mg ONCE ONCE PO 10/08/25 05:00 10/08/25 05:01 DC 10/08/25 04:50 Morphine Sulfate (morPHINE 2MG SYG) 2 mg ONCE ONCE IVP 10/08/25 03:00 10/08/25 03:01 DC 10/08/25 03:05 Vital Signs Date Time Temp Pulse Resp B/P (MAP) Pulse Ox O2 Delivery O2 Flow Rate FiO2 10/08/25 05:01 98.2 72 18 150/76 98 Room Air* 0 21 10/08/25 03:26 61 18 154/54 97 Room Air* 0 21 10/08/25 02:21 60 18 164/67 98 Room Air* 0 21 10/08/25 01:52 98.1 60 18 146/84 100 Room Air Medical Decision Making MDM 75-year-old female with a history of chronic back pain who presented to the ER complaining of left-sided sciatic pain. Sciatic left leg pain Pain medication ordered. Morphine 2 mg given IV Pain subsides, plan is to discharge the patient home with a recommended to follow up with the PCP. DX & DISP Disposition: Discharge Departure Impression: Primary Impression: Sciatic leg pain Condition: Stable Scripts Lidocaine (Lidocaine Pain Relief) 4 % Adh..patch 1 PATCH TP DAILY for 10 Days, #10 PATCH 0 Refills Prov: LIBERTY BOUCHER MD 10/08/25 Ibuprofen (Ibuprofen) 400 Mg Tablet 1 TAB PO TID for pain or fever for 5 Days, #15 TAB 0 Refills Prov: LIBERTY BOUCHER MD 10/08/25 Acetaminophen (Tylenol) 500 Mg Tab 1 TAB PO Q6HPRN PRN for pain or fever for 15 Days, #60 TAB 0 Refills Prov: LIBERTY BOUCHER MD 10/08/25 Referrals: JT MCCABE MD (PCP) Time of Disposition: 04:25 LIBERTY BOUCHER MD Oct 08, 2025 02:01
[2025-10-08 02:25] LABS: NUCLEATED RED BLOOD CELLS 0.0 % (0.0-0.19); PLATELET COUNT (AUTO) 169.0 K/uL (130-400); RED BLOOD CELL COUNT(AUTO) 4.29 MIL/uL (4.00-5.50); RED CELL DISTRIBUTION WIDTH 15.4 % (11.0-15.5); WHITE BLOOD COUNT (AUTO) 8.6 K/uL (4.8-10.8)
[2025-10-08 02:33] LABS: CREATININE 1.6 mg/dL (0.5-1.0); GLOMERULAR FILTR. RATE CALC 33.0 mL/min (>90); GLUCOSE,RANDOM 172.0 mg/dL (70-105); SODIUM SERUM 135.0 mmol/L (136-145); UREA NITROGEN, BLOOD 23.0 mg/dL (7-18)
[2025-10-08 03:47] LABS: APPEARANCE,URINE CLEAR (CLEAR); GLUCOSE, URINE (UA) 200 mg/dL (NEGATIVE); LEUKOCYTE ESTERASE ,URINE 250 Leu/uL (NEGATIVE); NITRATE,URINE NEGATIVE (NEGATIVE); OCCULT BLOOD,URINE NEGATIVE (NEGATIVE)
[2025-10-08 03:49] LABS: ADD UA MICROSCOPIC YES
[2025-10-08] MEDS ORDERED: IBUP-2076 PO (04:25)
[2025-10-08] MEDS ORDERED: LIDO1ADH71 TP (04:25)
[2025-10-08] MEDS ORDERED: ACET-66 PO (04:25)
--- NOTE | 2025-10-08 04:44 | NUR ---
PATIENT WAITING ON FAMILY FOR RIDE.
[2025-10-08 05:01] VITALS: BP 150/76; PULSE 72; RESP 18; TEMP 98.3; O2SAT 98
== END 2025-10-08 05:24 | disposition home or self-care (01) ==
LOC: EDH 01:50
DX: M54.32 Sciatica, left side (principal); E11.9 Type 2 diabetes mellitus without complications; E78.00 Pure hypercholesterolemia, unspecified; I11.9 Hypertensive heart disease without heart failure; Z79.1 Long term (current) use of non-steroidal anti-inflammatories (NSAID); Z79.82 Long term (current) use of aspirin; Z79.899 Other long term (current) drug therapy; Z85.3 Personal history of malignant neoplasm of breast; Z87.440 Personal history of urinary (tract) infections; Z88.0 Allergy status to penicillin; Z90.12 Acquired absence of left breast and nipple; Z90.710 Acquired absence of both cervix and uterus; Z95.1 Presence of aortocoronary bypass graft
CPT/HCPCS: 99283; 96374; 80048; 85027; 87086 ×3; 87186 ×2; 81001; 36415; J2270